=== PATIENT | male | born 1950 | race Caucasian/White ===

== ENCOUNTER 2018-10-06 20:21 | Emergency (ER) | payer MEDICARE, OTHER ==
[2018-10-06] MEDS ORDERED: Sodium Chloride 0.9% 1,000 ML IV ONE (20:28)
[2018-10-06] MEDS ORDERED: Sodium Chloride 0.9% 10 ML Syringe FLUSH PRN (20:28)
[2018-10-06] MEDS ORDERED: Sodium Chloride 0.9% 2.5 ML Syringe FLUSH PRN (20:28)
--- NOTE | 2018-10-06 20:31 | EDM.PDOC ---
ED HPI GENERAL MEDICAL PROBLEM - General Chief Complaint: Chest Pain Stated Complaint: PT DIZZY Time Seen by Provider: 10/06/18 20:30 Source of Information: Reports: Patient History Limitations: Reports: No Limitations - History of Present Illness INITIAL COMMENTS - FREE TEXT/NARRATIVE: HISTORY AND PHYSICAL: History of present illness: Patient is a 67-year-old male presents to the ED via EMS for lightheadedness and generalized weakness. He states he started feeling lightheaded and weak around 4pm this afternoon. He denies chest pain, shortness of breath, nausea, vomiting, headache, abdominal pain, diarrhea. He states he has a history of hypokalemia and hypmagnesemia and had calf cramping this afternoon. Past medical history significant for T2DM, hypertension, high cholesterol. Review of systems: As per history of present illness and below otherwise all systems reviewed and negative. Past medical history: As per history of present illness and as reviewed below otherwise noncontributory. Surgical history: As per history of present illness and as reviewed below otherwise noncontributory. Social history: No reported history of drug or alcohol abuse. Family history: As per history of present illness and as reviewed below otherwise noncontributory. Physical exam: General: Patient sitting comfortably in no acute distress and nontoxic appearing HEENT: Atraumatic, normocephalic, pupils reactive, negative for conjunctival pallor or scleral icterus, mucous membranes moist, throat clear, neck supple, nontender, trachea midline. No meningeal signs. Lungs: Clear to auscultation, breath sounds equal bilaterally, chest nontender. Heart: S1S2, regular, negative for clicks, rubs, or overt murmur. Abdomen: Soft, nondistended, nontender. Negative for masses or hepatosplenomegaly. Negative for costovertebral tenderness. No rigidity, rebound , guarding. Pelvis: Stable nontender. Genitourinary: Deferred. Rectal: Deferred. Extremities: Atraumatic, negative for cords or calf pain. Neurovascular unremarkable. Neuro: Awake, alert, oriented. Cranial nerves II through XII unremarkable. Cerebellum unremarkable. Motor and sensory unremarkable throughout. Exam nonfocal. Notes: Diagnostics: CBC, CMP, troponin, EKG, CXR, UA Therapeutics: 1L NS IV Prescriptions: Impression: Generalized weakness Plan: Follow up with primary care provider Return to ED as needed as discussed Definitive disposition and diagnosis as appropriate pending reevaluation and review of above. no pain Pain Score (Numeric/FACES): 0 - Related Data Allergies Allergy/AdvReac Type Severity Reaction Status Date / Time No Known Allergies Allergy Verified 10/06/18 20:30 Home Meds: Home Meds Aspirin 81 mg PO DAILY 10/06/18 [History] Baclofen 10 mg PO TID 10/06/18 [History] Carvedilol 25 mg PO ASDIRECTED 10/06/18 [History] Cholecalciferol (Vitamin D3) [D-2000] 2,000 unit PO ASDIRECTED 10/06/18 [History ] Cholecalciferol (Vitamin D3) [Vitamin D3] 1,000 unit PO ASDIRECTED 10/06/18 [ History] Cyanocobalamin (Vitamin B-12) [B-12] 1,000 mcg PO ASDIRECTED 10/06/18 [History] Cyclobenzaprine HCl 10 mg PO TID 10/06/18 [History] FLUoxetine HCl [Fluoxetine HCl] 20 mg PO ASDIRECTED 10/06/18 [History] Isosorbide Mononitrate [Imdur] 30 mg PO DAILY 10/06/18 [History] Lisinopril 10 mg PO DAILY 10/06/18 [History] Magnesium Oxide 420 mg PO ASDIRECTED 10/06/18 [History] Omeprazole 20 mg PO ONETIME 10/06/18 [History] amLODIPine Besylate [Amlodipine Besylate] 10 mg PO ASDIRECTED 10/06/18 [History] atorvaSTATin Calcium [Atorvastatin Calcium] 40 mg PO ASDIRECTED 10/06/18 [ History] atorvaSTATin Calcium [Atorvastatin Calcium] 80 mg PO ASDIRECTED 10/06/18 [ History] traZODone HCl [Trazodone HCl] 150 mg PO ASDIRECTED 10/06/18 [History] ED ROS GENERAL - Review of Systems Review Of Systems: ROS reveals no pertinent complaints other than HPI. ED EXAM, GENERAL - Physical Exam Exam: See Below (see dictation) Course - Vital Signs Last Recorded V/S: Last Vital Signs Temp 96.8 F 10/06/18 22:05 Pulse 81 10/06/18 22:05 Resp 18 10/06/18 22:05 BP 170/80 H 10/06/18 22:05 Pulse Ox 96 10/06/18 22:05 - Orders/Labs/Meds Orders: Active Orders 24 hr Category Date Time Status Cardiac Monitoring [RC] . DIRECTED Care 10/06/18 20:28 Active EKG Documentation Completion [RC] STAT Care 10/06/18 20:28 Active Sodium Chloride 0.9% [Saline Flush] Med 10/06/18 20:28 Active 10 ml FLUSH ASDIRECTED PRN Sodium Chloride 0.9% [Saline Flush] Med 10/06/18 20:28 Active 2.5 ml FLUSH ASDIRECTED PRN Saline Lock Insert [OM.PC] Stat Oth 10/06/18 20:28 Ordered Medication Orders Sodium Chloride (Saline Flush) 10 ml FLUSH ASDIRECTED PRN PRN Reason: Keep Vein Open Sodium Chloride (Saline Flush) 2.5 ml FLUSH ASDIRECTED PRN PRN Reason: Keep Vein Open Labs: Laboratory Tests 10/06/18 10/06/18 10/06/18 Range/Units 20:42 20:42 20:42 WBC 11.38 H (4.0-11.0) K/uL RBC 5.42 (4.50-5.90) M/uL Hgb 15.9 (13.0-17.0) g/dL Hct 44.4 (38.0-50.0) % MCV 81.9 (80.0-98.0) fL MCH 29.3 (27.0-32.0) pg MCHC 35.8 (31.0-37.0) g/dL RDW Std Deviation 40.6 (28.0-62.0) fl RDW Coeff of Davi 14 (11.0-15.0) % Plt Count 140 L (150-400) K/uL MPV 9.40 (7.40-12.00) fL Neut % (Auto) 74.5 (48.0-80.0) % Lymph % (Auto) 14.6 L (16.0-40.0) % Lamb % (Auto) 8.6 (0.0-15.0) % Eos % (Auto) 2.2 (0.0-7.0) % Baso % (Auto) 0.1 (0.0-1.5) % Neut # (Auto) 8.5 H (1.4-5.7) K/uL Lymph # (Auto) 1.7 (0.6-2.4) K/uL Lamb # (Auto) 1.0 H (0.0-0.8) K/uL Eos # (Auto) 0.3 (0.0-0.7) K/uL Baso # (Auto) 0.0 (0.0-0.1) K/uL Nucleated RBC % 0.0 /100WBC Nucleated RBCs # 0 K/uL INR 1.05 Sodium 138 (136-148) mmol/L Potassium 3.4 L (3.5-5.1) mmol/L Chloride 106 (98-107) mmol/L Carbon Dioxide 16.1 L (21.0-32.0) mmol/L BUN 14 (7.0-18.0) mg/dL Creatinine 1.2 (0.8-1.3) mg/dL Est Cr Clr Drug Dosing 59.99 mL/min Estimated GFR (MDRD) > 60.0 ml/min Glucose 267 H (74-106) mg/dL POC Glucose (60-110) mg/dL Calcium 9.5 (8.5-10.1) mg/dL Total Bilirubin 1.3 H (0.2-1.0) mg/dL AST 23 (15-37) IU/L ALT 44 (14-63) IU/L Alkaline Phosphatase 120 H (46-116) U/L Troponin I < 0.050 (0.000-0.056) ng/mL Total Protein 6.9 (6.4-8.2) g/dL Albumin 3.4 (3.4-5.0) g/dL Globulin 3.5 (2.6-4.0) g/dL Albumin/Globulin Ratio 1.0 (0.9-1.6) Urine Color Urine Appearance Urine pH (5.0-8.0) Ur Specific [place] (1.001-1.035) Urine Protein (NEGATIVE) mg/dL Urine Glucose (UA) (NEGATIVE) mg/dL Urine Ketones (NEGATIVE) mg/dL Urine Occult Blood (NEGATIVE) Urine Nitrite (NEGATIVE) Urine Bilirubin (NEGATIVE) Urine Ictotest Urine Urobilinogen (<2.0) EU/dL Ur Leukocyte Esterase (NEGATIVE) Urine RBC (0-2/HPF) Urine WBC (0-5/HPF) Ur Epithelial Cells (NONE-FEW) Urine Bacteria (NEGATIVE) Urine Mucus (NONE-MOD) 10/06/18 10/06/18 Range/Units 21:55 22:03 WBC (4.0-11.0) K/uL RBC (4.50-5.90) M/uL Hgb (13.0-17.0) g/dL Hct (38.0-50.0) % MCV (80.0-98.0) fL MCH (27.0-32.0) pg MCHC (31.0-37.0) g/dL RDW Std Deviation (28.0-62.0) fl RDW Coeff of Davi (11.0-15.0) % Plt Count (150-400) K/uL MPV (7.40-12.00) fL Neut % (Auto) (48.0-80.0) % Lymph % (Auto) (16.0-40.0) % Lamb % (Auto) (0.0-15.0) % Eos % (Auto) (0.0-7.0) % Baso % (Auto) (0.0-1.5) % Neut # (Auto) (1.4-5.7) K/uL Lymph # (Auto) (0.6-2.4) K/uL Lamb # (Auto) (0.0-0.8) K/uL Eos # (Auto) (0.0-0.7) K/uL Baso # (Auto) (0.0-0.1) K/uL Nucleated RBC % /100WBC Nucleated RBCs # K/uL INR Sodium (136-148) mmol/L Potassium (3.5-5.1) mmol/L Chloride (98-107) mmol/L Carbon Dioxide (21.0-32.0) mmol/L BUN (7.0-18.0) mg/dL Creatinine (0.8-1.3) mg/dL Est Cr Clr Drug Dosing mL/min Estimated GFR (MDRD) ml/min Glucose (74-106) mg/dL POC Glucose 207 H (60-110) mg/dL Calcium (8.5-10.1) mg/dL Total Bilirubin (0.2-1.0) mg/dL AST (15-37) IU/L ALT (14-63) IU/L Alkaline Phosphatase (46-116) U/L Troponin I (0.000-0.056) ng/mL Total Protein (6.4-8.2) g/dL Albumin (3.4-5.0) g/dL Globulin (2.6-4.0) g/dL Albumin/Globulin Ratio (0.9-1.6) Urine Color DARK YELLOW Urine Appearance SLT CLOUDY Urine pH 6.0 (5.0-8.0) Ur Specific [place] 1.025 (1.001-1.035) Urine Protein 30 H (NEGATIVE) mg/dL Urine Glucose (UA) NEGATIVE (NEGATIVE) mg/dL Urine Ketones NEGATIVE (NEGATIVE) mg/dL Urine Occult Blood NEGATIVE (NEGATIVE) Urine Nitrite NEGATIVE (NEGATIVE) Urine Bilirubin MODERATE H (NEGATIVE) Urine Ictotest NEGATIVE Urine Urobilinogen 0.2 (<2.0) EU/dL Ur Leukocyte Esterase NEGATIVE (NEGATIVE) Urine RBC 0-2 (0-2/HPF) Urine WBC 2-4 (0-5/HPF) Ur Epithelial Cells FEW (NONE-FEW) Urine Bacteria FEW (NEGATIVE) Urine Mucus HEAVY (NONE-MOD) Meds: Medications Generic Name Dose Route Start Last Admin Trade Name Freq PRN Reason Stop Dose Admin Sodium Chloride 10 ml 10/06/18 20:28 Saline Flush FLUSH ASDIRECTED PRN Keep Vein Open Sodium Chloride 2.5 ml 10/06/18 20:28 Saline Flush FLUSH ASDIRECTED PRN Keep Vein Open Discontinued Medications Generic Name Dose Route Start Last Admin Trade Name Freq PRN Reason Stop Dose Admin Sodium Chloride 1,000 mls @ 999 mls/hr 10/06/18 20:28 10/06/18 20:43 Normal Saline IV 10/06/18 21:28 999 mls/hr BOLUS ONE Administration Departure - Departure Time of Disposition: 22:28 Disposition: Home, Self-Care 01 Condition: Good Clinical Impression: Generalized weakness Referrals: PCP,None [Primary Care Provider] - Forms: ED Department Discharge Additional Instructions: The following information is given to patients seen in the emergency department who are being discharged to home. This information is to outline your options for follow-up care. We provide all patients seen in our emergency department with a follow-up referral. The need for follow-up, as well as the timing and circumstances, are variable depending upon the specifics of your emergency department visit. If you don't have a primary care physician on staff, we will provide you with a referral. We always advise you to contact your personal physician following an emergency department visit to inform them of the circumstance of the visit and for follow-up with them and/or the need for any referrals to a consulting specialist. The emergency department will also refer you to a specialist when appropriate. This referral assures that you have the opportunity for follow-up care with a specialist. All of these measure are taken in an effort to provide you with optimal care, which includes your follow-up. Under all circumstances we always encourage you to contact your private physician who remains a resource for coordinating your care. When calling for follow-up care, please make the office aware that this follow-up is from your recent emergency room visit. If for any reason you are refused follow-up, please contact the [facility] Emergency Department at and asked to speak to the emergency department charge nurse. [facility] [address] [place] [address] [place] [address] Follow up with primary care provider Return to ED as needed as discussed - My Orders Last 24 Hours: My Active Orders 10/06/18 20:28 Cardiac Monitoring [RC] . DIRECTED EKG Documentation Completion [RC] STAT Sodium Chloride 0.9% [Saline Flush] 10 ml FLUSH ASDIRECTED PRN Sodium Chloride 0.9% [Saline Flush] 2.5 ml FLUSH ASDIRECTED PRN Saline Lock Insert [OM.PC] Stat - Assessment/Plan Last 24 Hours: My Active Orders 10/06/18 20:28 Cardiac Monitoring [RC] . DIRECTED EKG Documentation Completion [RC] STAT Sodium Chloride 0.9% [Saline Flush] 10 ml FLUSH ASDIRECTED PRN Sodium Chloride 0.9% [Saline Flush] 2.5 ml FLUSH ASDIRECTED PRN Saline Lock Insert [OM.PC] Stat
--- NOTE | 2018-10-06 21:10 | CR ---
INDICATION: Chest pain, weakness TECHNIQUE: Chest radiograph 1 view COMPARISON: None FINDINGS: Mediastinum: The mediastinum is normal in appearance. The heart silhouette is normal in size and morphology. Lung: Both lungs are unremarkable in appearance. No sign of pleural effusion seen. No pneumothorax is identified. IMPRESSION: 1. No acute cardiopulmonary disease is seen. Dictated by: Chun Wren MD @ 10/06/2018 21:07:49 (Electronically Signed)
[2018-10-06 21:42] LABS: CHLORIDE,CL 106 mmol/L (98-107); SODIUM,NA 138 mmol/L (136-148)
== END 2018-10-06 22:45 | disposition home or self-care (01) ==
LOC: MW.ED 20:21
DX: R53.1 Weakness (principal); Z79.82 Long term (current) use of aspirin
CPT/HCPCS: 36415; 71045; 80053; 81001; 82962; 84484; 85025; 85610; 96360; 99285; J7040; 99283

== ENCOUNTER 2019-04-15 10:00 | Emergency (ER) | payer OTHER ==
[2019-04-15 11:06] LABS: CARBON DIOXIDE,CO2 22.5 mmol/L (21.0-32.0)
[2019-04-15] MEDS ORDERED: Potassium Chloride 20 MEQ Tab.ER PO ONE (11:21)
--- NOTE | 2019-04-15 13:09 | EDM.PDOC ---
ED HPI GENERAL MEDICAL PROBLEM - General Chief Complaint: General Stated Complaint: WEAKNESS Time Seen by Provider: 04/15/19 10:01 - History of Present Illness INITIAL COMMENTS - FREE TEXT/NARRATIVE: HPI 68-year-old male with history of HTN and low back pain presents for evaluation of a poorly described symptom constellation notable for intermittent lower extremity weakness when attempting to ambulate that is been present since yesterday evening. Patient reports that he is had recurrent/new onset low back pain several days prior. He was seen at the [facility] yesterday and reportedly diagnosed with left-sided ureterolithiasis that is the cause of his low back pain. Patient denies difficulty urinating, urinary incontinence, decreased perineal sensation, fecal incontinence, or difficulty stooling. Patient notes normal lower extremity sensation and waxing waning lower extremity strength. Triage note: PT to the ED [facility] having had weakness in his legs last night and falling, as well as being very SOB with walking short distances. PT upon standing to move to bed from EMS stretcher has shaking legs and a staggered appearing gait for the short distance. PT reports that he uses a walker to ambulate at home. Medications: atorvastatin, carvedilol, lisinopril, Imdur, B12, D3, fluoxetine, cyclobenzaprine, aspirin, amlodipine, omeprazole, baclofen. M/S/F/SocHx notable for: please see HPI; remainder reviewed with patient and in chart. ROS: Negative constitutional, eye, cardiovascular, pulmonary, GI, , MSK, skin , neurologic, psychiatric, endocrine unless noted in the HPI. Exam HR 81, RR 18, BP 126/103, T 35.9C, SaO2 98% on room air. Gen: Pleasant, non-toxic appearing, resting comfortably. HEENT: NC, AT, PEERL, EOMI. Resp: Clear to auscultation bilaterally, normal work of breathing, no accessory muscle usage. Card: Regular rate and rhythm with no murmurs, rubs, or gallops, extremities warm and well perfused. GI: Non-tender to palpation throughout all quadrants, no focal tenderness at McBurney's point, negative Xiao's sign, non-distended, no rebound or guarding. : No suprapubic tenderness to palpation. MSK: Gen - No visible deformities, strength and tone without visually appreciable deficit. BLE - 5/5 dorsiflexion and plantarflexion bilaterally, sensation grossly intact to touch on both feet. 2+ DP pulses bilaterally. Both feet warm and well perfused. 0/2 patellar reflexes bilaterally, 0/2 ankle reflexes bilaterally. Spine no lower thoracic or lumbar spinal tenderness palpation or palpable abnormalities. Gait - mildly antalgic, shuffling, slightly broad-based, when attempting to stand unassisted on toes patient has tremors of both legs. Assisted, the patient is able to stand with full strength on his toes. Skin: Normal color with no visible lesions. Neuro: alert and oriented 3, no facial asymmetry, vision and hearing WNL. Psych: Mood and affect appropriate. Labs / Imaging: WBC 7.29, HB 15.4, ESR 13, lactic acid 1.8, sodium 140, potassium 3.0, magnesium 1.8, CK 125, CRP 2.00, TSH 0.93. UA - negative nitrite, negative leukocyte esterase, no bacteria, no RBCs, negative occult blood. MDM Previous chart, nursing note, labs, imaging, and vitals reviewed. A: 68-year-old male with history of HTN and low back pain presents for evaluation of a poorly described symptom constellation notable for intermittent lower extremity weakness when attempting to ambulate that is been present since yesterday evening. DDx: electrolyte abnormalities, myositis, spinal pathology (fracture, lumbar radiculopathy, cauda equina), Guillain-Caldwell syndrome. Evaluation: patient with hypokalemia, upon further review patient notes that he has been noncompliant with his potassium supplementation. PO supplementation given. Repeat evaluation with patient noting return to baseline strength, patient notes he has had prior episodes of muscle weakness/spasming with hypokalemia. Patient discharged with Rx for potassium supplementation. CK WNL, doubt myositis. No clear evidence of clinically significant spinal pathology given the negative straight leg raise bilaterally, normal session your normal lower extremity strength, post void residual of 21 mL, and normal ESR, CRP, and WBC, furthermore, no point tenderness and unremarkable ROS and history. 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 While patient has no discernible lower extremity reflexes his age, diabetes, and alternate diagnosis are without suggestion of this etiology. Recommend follow-up on Wednesday for repeat evaluation. Impression: weakness, diabetes, hypokalemia. - Related Data Allergies Allergy/AdvReac Type Severity Reaction Status Date / Time methocarbamol [From Robaxin] Allergy Agitation Verified 04/15/19 10:05 Home Meds: Home Meds Aspirin 81 mg PO DAILY 10/06/18 [History] Baclofen 20 mg PO 10/06/18 [History] Cholecalciferol (Vitamin D3) [D-2000] 2,000 unit PO ASDIRECTED 10/06/18 [History ] Cholecalciferol (Vitamin D3) [Vitamin D3] 1,000 unit PO ASDIRECTED 10/06/18 [ History] Cyanocobalamin (Vitamin B-12) [B-12] 1,000 mcg PO ASDIRECTED 10/06/18 [History] Cyclobenzaprine HCl 10 mg PO TID 10/06/18 [History] FLUoxetine HCl [Fluoxetine HCl] 20 mg PO ASDIRECTED 10/06/18 [History] Isosorbide Mononitrate [Imdur] 30 mg PO DAILY 10/06/18 [History] Lisinopril 10 mg PO DAILY 10/06/18 [History] Magnesium Oxide 420 mg PO ASDIRECTED 10/06/18 [History] Omeprazole 20 mg PO ONETIME 10/06/18 [History] amLODIPine Besylate [Amlodipine Besylate] 10 mg PO ASDIRECTED 10/06/18 [History] atorvaSTATin Calcium [Atorvastatin Calcium] 40 mg PO ASDIRECTED 10/06/18 [ History] atorvaSTATin Calcium [Atorvastatin Calcium] 80 mg PO ASDIRECTED 10/06/18 [ History] carvediloL [Carvedilol] 25 mg PO ASDIRECTED 10/06/18 [History] Potassium Chloride [Klor-Con] 40 meq PO DAILY #8 packet 04/15/19 [Rx] Past Medical History HEENT History: Reports: None Cardiovascular History: Reports: High Cholesterol, Hypertension Respiratory History: Reports: None Gastrointestinal History: Reports: GERD Genitourinary History: Reports: Renal Calculus Musculoskeletal History: Reports: None Neurological History: Reports: None Psychiatric History: Reports: None Endocrine/Metabolic History: Reports: Diabetes, Type II Hematologic History: Reports: None Oncologic (Cancer) History: Reports: None Dermatologic History: Reports: None - Infectious Disease History Infectious Disease History: Reports: Hepatitis A - Past Surgical History GI Surgical History: Reports: Appendectomy, Cholecystectomy, Hernia Repair/Other Male Surgical History: Reports: Renal Calculus Other Musculoskeletal Surgeries/Procedures:: Back surgery with fusions Social & Family History - Family History Family Medical History: Noncontributory - Tobacco Use Smoking Status *Q: Never Smoker - Recreational Drug Use Recreational Drug Use: No ED ROS GENERAL - Review of Systems Review Of Systems: See Below ED EXAM, GENERAL - Physical Exam Exam: See Below Course - Vital Signs Last Recorded V/S: Last Vital Signs Temp 35.9 C L 04/15/19 10:05 Pulse 77 04/15/19 12:52 Resp 18 04/15/19 11:52 BP 103/53 L 04/15/19 12:52 Pulse Ox 93 L 04/15/19 12:52 - Orders/Labs/Meds Orders: Active Orders 24 hr Category Date Time Status Post Void Residual [OM.PC] Stat Oth 04/15/19 10:34 Ordered Labs: Laboratory Tests 04/15/19 04/15/19 04/15/19 Range/Units 10:04 10:04 10:04 WBC 7.29 (4.0-11.0) K/uL RBC 5.32 (4.50-5.90) M/uL Hgb 15.4 (13.0-17.0) g/dL Hct 44.5 (38.0-50.0) % MCV 83.6 (80.0-98.0) fL MCH 28.9 (27.0-32.0) pg MCHC 34.6 (31.0-37.0) g/dL RDW Std Deviation 39.6 (28.0-62.0) fl RDW Coeff of Davi 13 (11.0-15.0) % Plt Count 136 L (150-400) K/uL MPV 9.40 (7.40-12.00) fL Neut % (Auto) 68.4 (48.0-80.0) % Lymph % (Auto) 17.4 (16.0-40.0) % [place] % (Auto) 13.4 (0.0-15.0) % Eos % (Auto) 0.5 (0.0-7.0) % Baso % (Auto) 0.3 (0.0-1.5) % Neut # (Auto) 5.0 (1.4-5.7) K/uL Lymph # (Auto) 1.3 (0.6-2.4) K/uL [place] # (Auto) 1.0 H (0.0-0.8) K/uL Eos # (Auto) 0.0 (0.0-0.7) K/uL Baso # (Auto) 0.0 (0.0-0.1) K/uL Nucleated RBC % 0.0 /100WBC Nucleated RBCs # 0 K/uL ESR 13 (0-19) mm/hr Lactate (0.20-2.00) mmol/L Sodium 140 (136-148) mmol/L Potassium 3.0 L (3.5-5.1) mmol/L Chloride 102 (98-107) mmol/L Carbon Dioxide 22.5 (21.0-32.0) mmol/L BUN 20 H (7.0-18.0) mg/dL Creatinine 2.0 H (0.8-1.3) mg/dL Est Cr Clr Drug Dosing 35.49 mL/min Estimated GFR (MDRD) 33.2 ml/min Glucose 231 H (74-106) mg/dL Calcium 8.8 (8.5-10.1) mg/dL Magnesium 1.8 (1.8-2.4) mg/dL Total Bilirubin 0.8 (0.2-1.0) mg/dL AST 28 (15-37) IU/L ALT 47 (14-63) IU/L Alkaline Phosphatase 103 (46-116) U/L Creatine Kinase 125 (26-308) U/L C-Reactive Protein 2.00 H (0.00-0.90) mg/dL Total Protein 7.5 (6.4-8.2) g/dL Albumin 3.7 (3.4-5.0) g/dL Globulin 3.8 (2.6-4.0) g/dL Albumin/Globulin Ratio 1.0 (0.9-1.6) TSH 3rd Generation 0.93 (0.36-3.74) uIU/mL Urine Color Urine Appearance Urine pH (5.0-8.0) Ur Specific Fife (1.001-1.035) Urine Protein (NEGATIVE) mg/dL Urine Glucose (UA) (NEGATIVE) mg/dL Urine Ketones (NEGATIVE) mg/dL Urine Occult Blood (NEGATIVE) Urine Nitrite (NEGATIVE) Urine Bilirubin (NEGATIVE) Urine Urobilinogen (<2.0) EU/dL Ur Leukocyte Esterase (NEGATIVE) Urine RBC (0-2/HPF) Urine WBC (0-5/HPF) Ur Epithelial Cells (NONE-FEW) Urine Bacteria (NEGATIVE) 04/15/19 04/15/19 Range/Units 10:42 12:20 WBC (4.0-11.0) K/uL RBC (4.50-5.90) M/uL Hgb (13.0-17.0) g/dL Hct (38.0-50.0) % MCV (80.0-98.0) fL MCH (27.0-32.0) pg MCHC (31.0-37.0) g/dL RDW Std Deviation (28.0-62.0) fl RDW Coeff of Davi (11.0-15.0) % Plt Count (150-400) K/uL MPV (7.40-12.00) fL Neut % (Auto) (48.0-80.0) % Lymph % (Auto) (16.0-40.0) % [place] % (Auto) (0.0-15.0) % Eos % (Auto) (0.0-7.0) % Baso % (Auto) (0.0-1.5) % Neut # (Auto) (1.4-5.7) K/uL Lymph # (Auto) (0.6-2.4) K/uL [place] # (Auto) (0.0-0.8) K/uL Eos # (Auto) (0.0-0.7) K/uL Baso # (Auto) (0.0-0.1) K/uL Nucleated RBC % /100WBC Nucleated RBCs # K/uL ESR (0-19) mm/hr Lactate 1.8 (0.20-2.00) mmol/L Sodium (136-148) mmol/L Potassium (3.5-5.1) mmol/L Chloride (98-107) mmol/L Carbon Dioxide (21.0-32.0) mmol/L BUN (7.0-18.0) mg/dL Creatinine (0.8-1.3) mg/dL Est Cr Clr Drug Dosing mL/min Estimated GFR (MDRD) ml/min Glucose (74-106) mg/dL Calcium (8.5-10.1) mg/dL Magnesium (1.8-2.4) mg/dL Total Bilirubin (0.2-1.0) mg/dL AST (15-37) IU/L ALT (14-63) IU/L Alkaline Phosphatase (46-116) U/L Creatine Kinase (26-308) U/L C-Reactive Protein (0.00-0.90) mg/dL Total Protein (6.4-8.2) g/dL Albumin (3.4-5.0) g/dL Globulin (2.6-4.0) g/dL Albumin/Globulin Ratio (0.9-1.6) TSH 3rd Generation (0.36-3.74) uIU/mL Urine Color YELLOW Urine Appearance CLEAR Urine pH 5.5 (5.0-8.0) Ur Specific F[place] >= 1.030 (1.001-1.035) Urine Protein NEGATIVE (NEGATIVE) mg/dL Urine Glucose (UA) NEGATIVE (NEGATIVE) mg/dL Urine Ketones NEGATIVE (NEGATIVE) mg/dL Urine Occult Blood NEGATIVE (NEGATIVE) Urine Nitrite NEGATIVE (NEGATIVE) Urine Bilirubin NEGATIVE (NEGATIVE) Urine Urobilinogen 0.2 (<2.0) EU/dL Ur Leukocyte Esterase NEGATIVE (NEGATIVE) Urine RBC NONE SEEN (0-2/HPF) Urine WBC NONE SEEN (0-5/HPF) Ur Epithelial Cells RARE (NONE-FEW) Urine Bacteria NOT SEEN (NEGATIVE) Meds: Medications Discontinued Medications Generic Name Dose Route Start Last Admin Trade Name Freq PRN Reason Stop Dose Admin Potassium Chloride 40 meq 04/15/19 11:21 04/15/19 11:51 Klor-Con M20 PO 04/15/19 11:22 40 meq ONETIME ONE Administration Departure - Departure Time of Disposition: 13:06 Disposition: Home, Self-Care 01 Clinical Impression: Hypokalemia, Diabetes, Muscle weakness - Discharge Information Prescriptions: Potassium Chloride [Klor-Con] 40 meq PO DAILY #8 packet Referrals: PCP,None [Primary Care Provider] - Additional Instructions: You were in seen in the [facility] Emergency Department for evaluation of muscle weakness, you were found to have low potassium or hypokalemia. You have been prescribed potassium supplements. You were also noted to have diabetes. Please discuss this with your primary care physician on Wednesday when you follow-up. Should you have new or worsening symptoms please return immediately to the emergency department. Please read and follow all of the instructions below. Please follow up with your primary care physician on Wednesday for repeat check of your potassium. When calling for follow-up care, please make the office aware that this follow-up is from your recent emergency room visit. If for any reason you are refused follow-up, please contact the [facility] Emergency Department at and asked to speak to the emergency department charge nurse. Your care today was limited to identifying and treating emergent medical problems only. Many people have subtle differences in their test results that require follow up with their outpatient physician(s) to correctly determine if this represents a normal variation or concerning abnormality with respect to your specific health. The care given to you today was limited to identifying and treating emergent medical problems - you need to request a copy of all of your medical records from today's visit and follow up with your outpatient physician(s) to review both today's visit and your overall health. If you have any new symptoms or if you are at all concerned about your health please return immediately to the emergency department. Prescriptions: If you are uninsured or have financial difficulties with filling your prescription(s), you may consider using a free pharmacy discount service such as [employer] ([employer]) or [employer] ([employer]). These services allow you to search for a medication on your phone (or computer) and obtain a coupon that usually has a significant discount from the list neves at a pharmacy. Your physician as well as [facility] does not have a financial relationship with either of these services. You may also wish to speak with your physician to determine if lower cost prescriptions are possible. Obtaining primary care: 1. [facility] provides pediatrics (children), family medicine (children, adults, and some obstetrical care), and internal medicine (adults). Further specialty care is also available. Same day appointments are available. They may be contacted at [phone] and are open Wednesday through Wednesday 8 AM to 5 PM. The [facility] are located at [address], [place], [place] [address]. 2. [facility] offers family medicine, internal medicine, womens health, and further specialty care. [facility] may be contacted at [phone]. [facility] is located at [address] [place], [address]. 3. If you have health insurance, please also contact your insurer for a list of accepting providers under your policy, you may contact these providers for further health care. Occupational health: Work related injuries may consider following up with [facility], . Occupational health services are located at [address], [place] [address] and are open Wednesday through Wednesday from 7: 30 am to 5:00 pm. Obstetrical and Gynecological Care: [facility], , Wednesday through Wednesday 8 AM to [address] [place] [address]. Eyecare: If you have an eye injury you should follow up with your community manager or with [facility], at [phone] or [phone] , they are located at [address] [place] [address]. Dental Care Mckay Torres DDS. [address] [facility], [place], [place]. Ph. [phone] Holland Torres DDS MS. [address] [facility] [address], [place], [place]. Ph. Droian Barber DDS. [address] [place], [place]. Ph. [phone] Arnie Kellogg DDS. [address] [facility] [address] [place], [place]. Ph. [phone] [facility]. [address] [place], [place]. Ph. Flora Knott DDS. [address] [facility]. Ph. [phone] [facility]. [address] [place], [place]. Ph. [phone] [facility]. [address], [place], [place]. Ph. [phone] [facility] [address] [place] [address]. Ph. [phone] [facility]. [address] [place] [address] [address] [place], [place]. Ph. [facility]. [address], [place], [place]. Ph. Sepsis Event Note - Evaluation Sepsis Screening Result: No Definite Risk - Focused Exam Vital Signs: Vital Signs Temp Pulse Resp BP Pulse Ox 04/15/19 12:52 77 103/53 L 93 L 04/15/19 11:52 75 18 161/79 H 97 04/15/19 11:07 75 18 139/71 97 04/15/19 10:05 35.9 C L 81 18 126/103 H 98 Date Exam was Performed: 04/15/19 Time Exam was Performed: 13:06 - My Orders Last 24 Hours: My Active Orders 04/15/19 10:34 Post Void Residual [OM.PC] Stat - Assessment/Plan Last 24 Hours: My Active Orders 04/15/19 10:34 Post Void Residual [OM.PC] Stat
== END 2019-04-15 13:19 | disposition home or self-care (01) ==
LOC: MW.ED 10:00
DX: E87.6 Hypokalemia (principal); E11.9 Type 2 diabetes mellitus without complications; I10 Essential (primary) hypertension; E78.00 Pure hypercholesterolemia, unspecified; K21.9 Gastro-esophageal reflux disease without esophagitis; Z79.82 Long term (current) use of aspirin; Z79.899 Other long term (current) drug therapy; Z88.8 Allergy status to other drugs, medicaments and biological substances
CPT/HCPCS: 36415; 51798; 80053; 81001; 82550; 83605; 83735; 84443; 85025; 85652; 86140; 99283; A9270

== ENCOUNTER 2019-05-31 15:59 | Observation (INO) | payer OTHER ==
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
[2019-05-31 16:51] LABS: BLOOD UREA NITROGEN,BUN 19 mg/dL (7.0-18.0); CARBON DIOXIDE,CO2 22.3 mmol/L (21.0-32.0); CHLORIDE,CL 102 mmol/L (98-107); GLUCOSE RANDOM 272 mg/dL (74-106); POTASSIUM,K 3.8 mmol/L (3.5-5.1); SODIUM,NA 136 mmol/L (136-148)
--- NOTE | 2019-05-31 17:13 | CR ---
Chest: Portable view of the chest was obtained. Comparison: Prior chest x-ray of 10/06/18. Heart size and mediastinum are normal. Lungs are clear. Old healed right clavicle fracture is noted. Scattered endplate spurring noted within the spine. Impression: 1. Nothing acute is appreciated on portable chest x-ray. Diagnostic code #2 This report was dictated in MDT
--- NOTE | 2019-05-31 17:13 | CT ---
Head CT Technique: Multiple axial sections through the brain were obtained. Intravenous contrast was not utilized. Comparison: No prior intracranial imaging is available. Findings: Ventricles along with basal cisterns and sulci over the convexities appear within normal limits for the patient's age. Small lacunar infarct is noted adjacent to the head of the right caudate nucleus. Minimal diminished density is noted within the periventricular white matter compatible with small vessel ischemic demyelination change. Mild atherosclerotic calcification is seen within the vertebral vessels and within the carotid siphon. No acute intracranial abnormality is appreciated. Bone window settings were reviewed. No acute calvarial abnormality is appreciated. Slight mucosal thickening which is most likely chronic is seen within the inferior maxillary sinuses. Mastoid sinuses show nothing acute. Unfused posterior arch of C1 is noted which is a normal variant. Impression: 1. Sinus findings believed to be chronic. 2. Mild senescent change as noted above. 3. Nothing acute is appreciated on noncontrast CT study of the brain. Diagnostic code #2 This report was dictated in MDT
--- NOTE | 2019-05-31 17:25 | CT ---
CT cervical spine Technique: Multiple axial sections through the cervical spine were obtained. Study was obtained from above C1 inferiorly to the mid T4 level. Reconstructed sagittal and coronal images were obtained. Findings: Mild disc space narrowing of C5-6 with anterior osteophytes. Smaller osteophytes are noted C6-7. Calcifications are noted within the anterior annulus at C5-6 and C6-7. Bridging osteophytes are noted at T2-3 and T3-4. Mild osteophytes are noted anteriorly at C3-4. No abnormal subluxation is seen. Scattered degenerative apophyseal change is seen throughout the cervical spine and within the upper thoracic spine. Incomplete arch of C1 is seen which is a normal variant. No fracture is appreciated. Mild right-sided neural foraminal stenosis noted at C4-5. Mild right-sided neural foraminal stenosis noted at C3-4. No bony central canal stenosis is appreciated. Impression: 1. Degenerative change as noted above. 2. Nothing acute is appreciated on CT study of the cervical spine. Diagnostic code #2 This report was dictated in MDT
--- NOTE | 2019-05-31 17:25 | CT ---
CT lumbar spine Technique: Multiple axial sections were obtained CT lumbar spine Technique: Multiple axial sections were obtained from the mid T12 level inferiorly through the L5-S1 disc. Reconstructed sagittal and coronal images were reviewed. Comparison: No prior lumbar spine imaging is available. Findings: T12-L1: Posterior disc space narrowing is seen. Posterior disc is preserved. No central canal stenosis or neural foraminal stenosis is seen. L1-2: Posterior disc space narrowing is seen. No central canal stenosis or neural foraminal stenosis is seen. L2-3: Posterior disc space narrowing is seen. Minimal circumferential disc bulge is noted. Mild degenerative apophyseal change is noted. No central canal stenosis is seen. Neural foramina are patent where the nerve roots exit. L3-4: Slight circumferential disc bulge is noted. Moderate degenerative apophyseal change is seen. No central canal stenosis is seen. Neural foramina are patent where the nerve roots exit. L4-5: Slight posterior disc space narrowing noted with circumferential disc bulge. Artifact noted from transpedicle screws being seen within L5. No definite central canal stenosis or neural foraminal stenosis is seen. L5-S1: Artifact from intervertebral disc fixation and transpedicle screws. No further comment can be made. No discrete fracture is appreciated. No abnormal subluxation is seen. Diffuse atherosclerotic calcification is seen within the abdominal aorta and within the iliac vessels. Impression: 1. Degenerative change and previous surgery. 2. No definite acute abnormality is appreciated on CT study of the lumbar spine. Diagnostic code #2 This report was dictated in MDT
[2019-05-31] MEDS ORDERED: Morphine 4 MG/ML Syringe IVPUSH PRN (18:12)
[2019-05-31] MEDS: Ondansetron 4 MG/2 ML SDV IVPUSH ONE ×2 (18:46→18:47)
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
[2019-05-31] MEDS ORDERED: atorvaSTATin 40 MG Tab PO SCH (21:30)
[2019-05-31] MEDS ORDERED: traZODone 50 MG Tab PO SCH (21:30)
[2019-05-31] MEDS ORDERED: Baclofen 10 MG Tab PO SCH (22:00)
[2019-05-31] MEDS: Gabapentin 300 MG Cap PO SCH (22:18)
[2019-05-31] MEDS: Carvedilol 25 MG Tab PO SCH (22:18)
[2019-06-01 06:05] LABS: CARBON DIOXIDE,CO2 25.9 mmol/L (21.0-32.0); POTASSIUM,K 3.4 mmol/L (3.5-5.1)
[2019-06-01] MEDS ORDERED: Insulin Aspart 100 Units/ML 3 ML Pen SUBCUT SCH (07:00)
[2019-06-01] MEDS ORDERED: Insulin Glargine,Human Rec. Analog 100 Units/ML 3 ML Pen SUBCUT SCH (07:00)
[2019-06-01] MEDS ORDERED: FLUoxetine 20 MG Cap PO SCH (08:00)
[2019-06-01] MEDS: Gabapentin 300 MG Cap PO SCH (08:15)
[2019-06-01] MEDS: Carvedilol 25 MG Tab PO SCH (08:15)
[2019-06-01] MEDS ORDERED: Isosorbide Mononitrate 30 MG Tab.ER PO SCH (09:00)
[2019-06-01] MEDS ORDERED: Baclofen 10 MG Tab PO SCH (09:00)
[2019-06-01] MEDS ORDERED: Lisinopril 5 MG Tab PO SCH (09:00)
[2019-06-01] MEDS ORDERED: amLODIPine 5 MG Tab PO SCH (09:00)
--- NOTE | 2019-06-01 09:34 | PCM.SN.2 ---
- Free Text/Narrative Note: no complaints; no neurological finding; abd soft; home, fu w primary provider and me 1 -2 wks
[2019-06-01] MEDS ORDERED: Pneumococcal Polyvalent-23 Vaccine 0.5 ML SDV IM ONE (09:45)
[2019-06-02] MEDS ORDERED: Pneumococcal Polyvalent-23 Vaccine 0.5 ML SDV IM ONE (10:00)
== END 2019-06-01 10:25 | disposition home or self-care (01) ==
LOC: MW.ED 15:59 → MW.MS 18:41
PROVIDERS: ADMIT Surgery; ATTEND Surgery
DX: S06.0X9A Concussion with loss of consciousness of unspecified duration, initial encounter (principal); G89.29 Other chronic pain; M54.5 Low back pain; E78.00 Pure hypercholesterolemia, unspecified; I10 Essential (primary) hypertension; E11.9 Type 2 diabetes mellitus without complications; Z88.8 Allergy status to other drugs, medicaments and biological substances; Z79.899 Other long term (current) drug therapy; Z79.4 Long term (current) use of insulin; V57.5XXA Driver of pick-up truck or van injured in collision with fixed or stationary object in traffic accident, initial encounter; Y92.410 Unspecified street and highway as the place of occurrence of the external cause
CPT/HCPCS: 36415; 70450; 71045; 72125; 72131; 80053; 80307; 82962; 84484; 85025; 85610; 93005; 99285; A9270; G0378; J1815; 99283; J2405

== ENCOUNTER 2019-09-07 16:24 | Emergency (ER) | payer OTHER ==
[2019-09-07] MEDS ORDERED: Acetaminophen/oxyCODONE 325-5 MG Tab PO ONE (17:28)
[2019-09-07] MEDS ORDERED: Ibuprofen 400 MG Tab PO ONE (17:28)
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
[2019-09-07] MEDS ORDERED: Bacitracin Oint 1 GM U/D Packet TOP ONE (20:19)
--- NOTE | 2019-09-07 21:57 | CT ---
CT left hand Technique: Multiple axial sections through the left hand were obtained. Reconstructed coronal and sagittal images were obtained. Comparison: Prior left hand radiographic study performed earlier on the same day (3:11 PM). Findings: Degenerative change is noted within the DIP joints with joint space narrowing and osteophytes. Joint space narrowing is noted off the distal navicular bone. Cyst is noted within the trapezoid bone. Cyst is noted within the lunate bone. Cysts are noted within the distal first metacarpal as well as several small erosions which appeared to be old. No acute fracture or other bony abnormality is appreciated. Impression: 1. Degenerative change as noted above. 2. No acute fracture or dislocation is seen. Diagnostic code #2 Report dictated in [place] daylight time. [facility]
--- NOTE | 2019-09-08 10:38 | CT ---
EXAM DATE: 09/07/19 PATIENT'S AGE: 68 CT left wrist Technique: Multiple axial to the left wrist were obtained. Reconstructed: Sagittal images were obtained. Comparison: No prior wrist exams available. Scattered cysts noted within the carpal bones. Joint space narrowing noted off the distal navicular bone. No acute fracture, dislocation or other bony abnormality is appreciated. Impression: 1. Mild degenerative change. 2. Nothing acute seen on CT study of the left wrist. Diagnostic code #2 This report was dictated in MDT Report Signed by Proxy. GALO
== END 2019-09-07 20:40 | disposition home or self-care (01) ==
LOC: MW.ED 16:24
DX: S63.92XA Sprain of unspecified part of left wrist and hand, initial encounter (principal); E11.9 Type 2 diabetes mellitus without complications; I10 Essential (primary) hypertension; F41.9 Anxiety disorder, unspecified; F32.9 Major depressive disorder, single episode, unspecified; E66.9 Obesity, unspecified; E78.00 Pure hypercholesterolemia, unspecified; E78.5 Hyperlipidemia, unspecified; Z88.8 Allergy status to other drugs, medicaments and biological substances; Z79.899 Other long term (current) drug therapy; Z79.4 Long term (current) use of insulin; W19.XXXA Unspecified fall, initial encounter; Y92.481 Parking lot as the place of occurrence of the external cause
CPT/HCPCS: 73200; 99284; A9270; 99282

== ENCOUNTER 2019-09-29 12:26 | Observation (INO) | payer OTHER ==
[2019-09-29] MEDS ORDERED: Sodium Chloride 0.9% 2.5 ML Syringe FLUSH PRN ×2 (12:44→15:07)
[2019-09-29] MEDS ORDERED: Sodium Chloride 0.9% 1,000 ML IV ONE (12:44)
[2019-09-29] MEDS ORDERED: Sodium Chloride 0.9% 10 ML Syringe FLUSH PRN (12:44)
[2019-09-29 13:45] LABS: CARBON DIOXIDE,CO2 20.2 mmol/L (21.0-32.0); POTASSIUM,K 3.5 mmol/L (3.5-5.1)
[2019-09-29] MEDS ORDERED: Sodium Chloride 0.9% 1,000 ML IV SCH (14:00)
--- NOTE | 2019-09-29 14:21 | EDM.PDOC ---
ED HPI GENERAL MEDICAL PROBLEM - General Chief Complaint: General Stated Complaint: [facility] Time Seen by Provider: 09/29/19 12:28 - Related Data Allergies Allergy/AdvReac Type Severity Reaction Status Date / Time methocarbamol [From Robaxin] Allergy Agitation Verified 09/29/19 12:42 Home Meds: Home Meds FLUoxetine HCl [Fluoxetine HCl] 60 mg PO WITHBREAKFAST 10/06/18 [History] Isosorbide Mononitrate [Imdur] 30 mg PO DAILY 10/06/18 [History] Lisinopril 5 mg PO QAM 10/06/18 [History] amLODIPine Besylate [Amlodipine Besylate] 5 mg PO DAILY 10/06/18 [History] atorvaSTATin Calcium [Atorvastatin Calcium] 40 mg PO BEDTIME 10/06/18 [History] carvediloL [Carvedilol] 25 mg PO BID 10/06/18 [History] Baclofen 20 mg PO DAILY 05/31/19 [History] Gabapentin [Neurontin] 300 mg PO BID 05/31/19 [History] Insulin Aspart [NovoLOG] 12 unit SUBCUT .QAM AND QPM 05/31/19 [History] Insulin Glargine,Hum.Rec.Anlog [Lantus Solostar] 32 unit SQ .QAM AND QPM 05/31/19 [History] traZODone HCl [Trazodone HCl] 150 mg PO BEDTIME 05/31/19 [History] Past Medical History HEENT History: Reports: None Cardiovascular History: Reports: High Cholesterol, Hypertension, Other (See Below) Other Cardiovascular History: reports a "chip in my chest", states "no mri for me" Respiratory History: Reports: None Gastrointestinal History: Reports: GERD Genitourinary History: Reports: Renal Calculus Musculoskeletal History: Reports: Arthritis, Back Pain, Chronic, Other (See Below) Other Musculoskeletal History: lower back pain Neurological History: Reports: None Psychiatric History: Reports: Anxiety, Depression, PTSD Endocrine/Metabolic History: Reports: Diabetes, Type II, Obesity/BMI 30+ Hematologic History: Reports: None Oncologic (Cancer) History: Reports: None Dermatologic History: Reports: None - Infectious Disease History Infectious Disease History: Reports: None - Past Surgical History Head Surgeries/Procedures: Reports: None Cardiovascular Surgical History: Reports: None GI Surgical History: Reports: Appendectomy, Cholecystectomy, Hernia Repair/Other Male Surgical History: Reports: Renal Calculus Endocrine Surgical History: Reports: None Other Musculoskeletal Surgeries/Procedures:: Back surgery with fusions plate and screws Social & Family History - Family History Family Medical History: Noncontributory - Tobacco Use Smoking Status *Q: Never Smoker - Caffeine Use Caffeine Use: Reports: Coffee Other Caffeine Use: 20 oz coffee in morning - Recreational Drug Use Recreational Drug Use: No ED ROS GENERAL - Review of Systems Review Of Systems: See Below ED EXAM, GENERAL - Physical Exam Exam: See Below Course - Vital Signs Text/Narrative:: Patient have worsening renal insufficiency he is asymptomatic there is a normal potassium I discussed case with Dr. Pan at 2:20 PM he will accept the patient telemetry obs. Patient was given IV fluids in the ED. COVID pending Last Recorded V/S: Last Vital Signs Temp 35.8 C L 09/29/19 12:42 Pulse 66 09/29/19 13:45 Resp 16 09/29/19 13:15 BP 101/59 L 09/29/19 13:45 Pulse Ox 98 09/29/19 13:45 - Orders/Labs/Meds Orders: Active Orders 24 hr Category Date Time Status CORONAVIRUS COVID-19 RAPID [MOLEC] Stat Lab 09/29/19 13:57 Received Sodium Chloride 0.9% [Normal Saline] 1,000 ml Med 09/29/19 14:00 Active IV ASDIRECTED Sodium Chloride 0.9% [Saline Flush] Med 09/29/19 12:44 Active 10 ml FLUSH ASDIRECTED PRN Sodium Chloride 0.9% [Saline Flush] Med 09/29/19 12:44 Active 2.5 ml FLUSH ASDIRECTED PRN Saline Lock Insert [OM.PC] Stat Oth 09/29/19 12:44 Ordered Medication Orders Sodium Chloride (Normal Saline) 1,000 mls @ 125 mls/hr IV ASDIRECTED VILMA Sodium Chloride (Saline Flush) 10 ml FLUSH ASDIRECTED PRN PRN Reason: Keep Vein Open Sodium Chloride (Saline Flush) 2.5 ml FLUSH ASDIRECTED PRN PRN Reason: Keep Vein Open Labs: Laboratory Tests 09/29/19 09/29/19 Range/Units 13:05 13:05 WBC 9.43 (4.0-11.0) K/uL RBC 4.94 (4.50-5.90) M/uL Hgb 14.9 (13.0-17.0) g/dL Hct 41.5 (38.0-50.0) % MCV 84.0 (80.0-98.0) fL MCH 30.2 (27.0-32.0) pg MCHC 35.9 (31.0-37.0) g/dL RDW Std Deviation 40.2 (28.0-62.0) fl RDW Coeff of Davi 13 (11.0-15.0) % Plt Count 184 (150-400) K/uL MPV 9.20 (7.40-12.00) fL Neut % (Auto) 54.4 (48.0-80.0) % Lymph % (Auto) 32.4 (16.0-40.0) % [place] % (Auto) 9.8 (0.0-15.0) % Eos % (Auto) 3.2 (0.0-7.0) % Baso % (Auto) 0.2 (0.0-1.5) % Neut # (Auto) 5.1 (1.4-5.7) K/uL Lymph # (Auto) 3.1 H (0.6-2.4) K/uL [place] # (Auto) 0.9 H (0.0-0.8) K/uL Eos # (Auto) 0.3 (0.0-0.7) K/uL Baso # (Auto) 0.0 (0.0-0.1) K/uL Nucleated RBC % 0.0 /100WBC Nucleated RBCs # 0 K/uL Sodium 134 L (136-148) mmol/L Potassium 3.5 (3.5-5.1) mmol/L Chloride 100 (98-107) mmol/L Carbon Dioxide 20.2 L (21.0-32.0) mmol/L BUN 48 H (7.0-18.0) mg/dL Creatinine 2.9 H (0.8-1.3) mg/dL Est Cr Clr Drug Dosing 24.47 mL/min Estimated GFR (MDRD) 21.6 ml/min Glucose 196 H (74-106) mg/dL Calcium 8.9 (8.5-10.1) mg/dL Total Bilirubin 1.5 H (0.2-1.0) mg/dL AST 42 H (15-37) IU/L ALT 48 (14-63) IU/L Alkaline Phosphatase 99 (46-116) U/L Total Protein 7.8 (6.4-8.2) g/dL Albumin 4.1 (3.4-5.0) g/dL Globulin 3.7 (2.6-4.0) g/dL Albumin/Globulin Ratio 1.1 (0.9-1.6) Meds: Medications Generic Name Dose Route Start Last Admin Trade Name Freq PRN Reason Stop Dose Admin Sodium Chloride 1,000 mls @ 125 mls/hr 09/29/19 14:00 Normal Saline IV ASDIRECTED VILMA Sodium Chloride 10 ml 09/29/19 12:44 Saline Flush FLUSH ASDIRECTED PRN Keep Vein Open Sodium Chloride 2.5 ml 09/29/19 12:44 Saline Flush FLUSH ASDIRECTED PRN Keep Vein Open Discontinued Medications Generic Name Dose Route Start Last Admin Trade Name Freq PRN Reason Stop Dose Admin Sodium Chloride 1,000 mls @ 999 mls/hr 09/29/19 12:44 09/29/19 13:09 Normal Saline IV 09/29/19 13:44 999 mls/hr .Bolus ONE Administration Departure - Departure Time of Disposition: 14:21 Disposition: Refer to Observation Condition: Good Clinical Impression: Acute kidney injury - Discharge Information *PRESCRIPTION DRUG MONITORING PROGRAM REVIEWED*: Not Applicable *COPY OF PRESCRIPTION DRUG MONITORING REPORT IN PATIENT LILIA: Not Applicable Referrals: Eloy Hdz NP [Primary Care Provider] - Sepsis Event Note (ED) - Evaluation Sepsis Screening Result: No Definite Risk - Focused Exam Vital Signs: Vital Signs Temp Pulse Resp BP Pulse Ox 09/29/19 13:45 66 101/59 L 98 09/29/19 13:15 64 16 104/51 L 96 09/29/19 12:42 35.8 C L 83 16 108/58 L 98 - My Orders Last 24 Hours: My Active Orders 09/29/19 12:44 Sodium Chloride 0.9% [Saline Flush] 10 ml FLUSH ASDIRECTED PRN Sodium Chloride 0.9% [Saline Flush] 2.5 ml FLUSH ASDIRECTED PRN Saline Lock Insert [OM.PC] Stat 09/29/19 13:57 CORONAVIRUS COVID-19 RAPID [MOLEC] Stat 09/29/19 14:00 Sodium Chloride 0.9% [Normal Saline] 1,000 ml IV ASDIRECTED - Assessment/Plan Last 24 Hours: My Active Orders 09/29/19 12:44 Sodium Chloride 0.9% [Saline Flush] 10 ml FLUSH ASDIRECTED PRN Sodium Chloride 0.9% [Saline Flush] 2.5 ml FLUSH ASDIRECTED PRN Saline Lock Insert [OM.PC] Stat 09/29/19 13:57 CORONAVIRUS COVID-19 RAPID [MOLEC] Stat 09/29/19 14:00 Sodium Chloride 0.9% [Normal Saline] 1,000 ml IV ASDIRECTED
[2019-09-29] MEDS ORDERED: Ondansetron 4 MG/2 ML SDV IVPUSH PRN (15:07)
[2019-09-29] MEDS ORDERED: Acetaminophen 325 MG Tab PO PRN (15:07)
--- NOTE | 2019-09-29 15:22 | PCM.HP.2 ---
H&P History of Present Illness - General Date of Service: 09/29/19 Admit Problem/Dx: Admission Diagnosis/Problem Admission Diagnosis/Problem Acute kidney injury Source of Information: Patient History Limitations: Reports: No Limitations - History of Present Illness Initial Comments - Free Text/Narative: This 68 year old male with pmh of HTN, DM Type 2, chronic back pain, and obesity [place] with concerns of worsening renal function on routine labwork. He reports he has been feeling more run down the last week, but has been eating and drinking ok. He denies abdominal pain or flank pain. No urinary troubles. Reports urine is slightly more dark than usual. He reports history of renal injury in the past, unsure why. Has history of kidney stones, does not feel like that is the issue now. He did report injuring his L wrist a couple weeks ago and was given NSAIDs PO and IM a few times. No currently OTC medications. He denies tobacco use, alcohol use or recreational drug use. In the ED labwork obtained reveals normal CBC, Na 134, K+ 3.5, Bicarb 20.2, BUN 48, Cr 2.9, Bilirubin 1.5 AST 42 COVID negative. BP softer, 100-105/50s, HR 60- 80s. He was given 1 L NS bolus in the ED. Admitted observation for AGUILAR. PCP, [facility] Eloy Hdz [employer] - Related Data Allergies/Adverse Reactions: Allergies Allergy/AdvReac Type Severity Reaction Status Date / Time methocarbamol [From Robaxin] Allergy Agitation Verified 09/29/19 12:42 Home Medications: Home Meds FLUoxetine HCl [Fluoxetine HCl] 60 mg PO WITHBREAKFAST 10/06/18 [History] Isosorbide Mononitrate [Imdur] 30 mg PO DAILY 10/06/18 [History] Lisinopril 5 mg PO QAM 10/06/18 [History] carvediloL [Carvedilol] 25 mg PO BID 10/06/18 [History] Baclofen 10 mg PO TID 05/31/19 [History] Gabapentin [Neurontin] 300 mg PO TID 05/31/19 [History] Insulin Aspart [NovoLOG] 12 unit SUBCUT .QAM AND QPM 05/31/19 [History] Insulin Glargine,Hum.Rec.Anlog [Lantus Solostar] 32 unit SQ .QAM AND QPM 05/31/19 [History] traZODone HCl [Trazodone HCl] 150 mg PO BEDTIME 05/31/19 [History] Cholecalciferol (Vitamin D3) [Vitamin D3] 50 mcg PO DAILY 09/29/19 [History] Cyanocobalamin (Vitamin B-12) [B-12] 1,000 mcg PO QAM 09/29/19 [History] Lidocaine 1 each TOP DAILY 09/29/19 [History] Magnesium Oxide 420 mg PO BID 09/29/19 [History] Meloxicam 7.5 mg PO WITHBREAKFAST 09/29/19 [History] Omeprazole 20 mg PO ACBREAKFAST 09/29/19 [History] Past Medical History HEENT History: Reports: None Cardiovascular History: Reports: High Cholesterol, Hypertension, Other (See Below) Other Cardiovascular History: reports a "chip in my chest", states "no mri for m e" Respiratory History: Reports: None Gastrointestinal History: Reports: GERD Genitourinary History: Reports: Renal Calculus Musculoskeletal History: Reports: Arthritis, Back Pain, Chronic, Other (See Below) Other Musculoskeletal History: lower back pain Neurological History: Reports: None Psychiatric History: Reports: Anxiety, Depression, PTSD Endocrine/Metabolic History: Reports: Diabetes, Type II, Obesity/BMI 30+ Hematologic History: Reports: None Oncologic (Cancer) History: Reports: None Dermatologic History: Reports: None - Infectious Disease History Infectious Disease History: Reports: None - Past Surgical History Head Surgeries/Procedures: Reports: None Cardiovascular Surgical History: Reports: None GI Surgical History: Reports: Appendectomy, Cholecystectomy, Hernia Repair/Other Male Surgical History: Reports: Renal Calculus Endocrine Surgical History: Reports: None Other Musculoskeletal Surgeries/Procedures:: Back surgery with fusions plate and screws Social & Family History - Family History Family Medical History: Noncontributory - Tobacco Use Smoking Status *Q: Never Smoker - Caffeine Use Caffeine Use: Reports: Coffee Other Caffeine Use: 20 oz coffee in morning - Alcohol Use Alcohol Use History: No - Recreational Drug Use Recreational Drug Use: No - Living Situation & Occupation Occupation: Retired H&P Review of Systems - Review of Systems: Review Of Systems: See Below General: Reports: Malaise (generalized), Fatigue HEENT: Reports: No Symptoms Pulmonary: Denies: Shortness of Breath Cardiovascular: Denies: Chest Pain Gastrointestinal: Reports: No Symptoms, Other (no rectal pain or pressure). Denies: Abdominal Pain, Black Stool, Bloody Stool, Nausea, Vomiting Genitourinary: Reports: No Symptoms. Denies: Dysuria, Frequency Musculoskeletal: Reports: Back Pain (chronic) Skin: Reports: Wound Psychiatric: Reports: No Symptoms Neurological: Reports: No Symptoms Hematologic/Lymphatic: Reports: No Symptoms Immunologic: Reports: No Symptoms Exam - Exam Exam: See Below - Vital Signs Vital Signs: Last Vital Signs Temp 97.4 F 09/29/19 15:08 Pulse 72 09/29/19 15:08 Resp 16 09/29/19 15:08 BP 138/68 09/29/19 15:08 Pulse Ox 100 09/29/19 15:08 Weight: 100.698 kg - Exam General: Alert, Oriented, Cooperative HEENT: Conjunctiva Clear, Mucosa Moist & [place] Neck: Supple, Full Range of Motion. No: JVD Lungs: Clear to Auscultation, Normal Respiratory Effort Cardiovascular: Regular Rate, Regular Rhythm GI/Abdominal Exam: Normal Bowel Sounds, Soft, Non-Tender Back Exam: Normal Inspection, Full Range of Motion. No: CVA Tenderness (L), CVA Tenderness (R) Neurological: Cranial Nerves Intact Neuro Extensive - Mental Status: Alert, Oriented x3 Neuro Extensive - Motor, Sensory, Reflexes: CN II-XII Intact, Normal Gait, Normal Reflexes Psychiatric: Alert, Normal Affect, Normal Mood - Patient Data Lab Results Last 24 hrs: Laboratory Results - last 24 hr 09/29/19 09/29/19 09/29/19 Range/Units 13:05 13:05 13:57 WBC 9.43 (4.0-11.0) K/uL RBC 4.94 (4.50-5.90) M/uL Hgb 14.9 (13.0-17.0) g/dL Hct 41.5 (38.0-50.0) % MCV 84.0 (80.0-98.0) fL MCH 30.2 (27.0-32.0) pg MCHC 35.9 (31.0-37.0) g/dL RDW Std Deviation 40.2 (28.0-62.0) fl RDW Coeff of Davi 13 (11.0-15.0) % Plt Count 184 (150-400) K/uL MPV 9.20 (7.40-12.00) fL Neut % (Auto) 54.4 (48.0-80.0) % Lymph % (Auto) 32.4 (16.0-40.0) % [place] % (Auto) 9.8 (0.0-15.0) % Eos % (Auto) 3.2 (0.0-7.0) % Baso % (Auto) 0.2 (0.0-1.5) % Neut # (Auto) 5.1 (1.4-5.7) K/uL Lymph # (Auto) 3.1 H (0.6-2.4) K/uL [place] # (Auto) 0.9 H (0.0-0.8) K/uL Eos # (Auto) 0.3 (0.0-0.7) K/uL Baso # (Auto) 0.0 (0.0-0.1) K/uL Nucleated RBC % 0.0 /100WBC Nucleated RBCs # 0 K/uL Sodium 134 L (136-148) mmol/L Potassium 3.5 (3.5-5.1) mmol/L Chloride 100 (98-107) mmol/L Carbon Dioxide 20.2 L (21.0-32.0) mmol/L BUN 48 H (7.0-18.0) mg/dL Creatinine 2.9 H (0.8-1.3) mg/dL Est Cr Clr Drug Dosing 24.47 mL/min Estimated GFR (MDRD) 21.6 ml/min Glucose 196 H (74-106) mg/dL Calcium 8.9 (8.5-10.1) mg/dL Total Bilirubin 1.5 H (0.2-1.0) mg/dL AST 42 H (15-37) IU/L ALT 48 (14-63) IU/L Alkaline Phosphatase 99 (46-116) U/L Total Protein 7.8 (6.4-8.2) g/dL Albumin 4.1 (3.4-5.0) g/dL Globulin 3.7 (2.6-4.0) g/dL Albumin/Globulin Ratio 1.1 (0.9-1.6) COVID-19 (OLAYINKA) NEGATIVE (NEGATIVE) Result Diagrams: 09/29/19 13:05 09/29/19 13:05 Sepsis Event Note - Evaluation Sepsis Screening Result: No Definite Risk - Focused Exam Vital Signs: Vital Signs Temp Pulse Resp BP Pulse Ox 09/29/19 15:08 97.4 F 72 16 138/68 100 09/29/19 13:45 66 101/59 L 98 09/29/19 13:15 64 16 104/51 L 96 09/29/19 12:42 96.4 F L 83 16 108/58 L 98 - Problem List (1) Acute kidney injury SNOMED Code(s): 36134295, 41711659 ICD Code: N17.9 - ACUTE KIDNEY FAILURE, UNSPECIFIED Status: Acute Current Visit: Yes (2) Generalized weakness SNOMED Code(s): 41819468 ICD Code: R53.1 - WEAKNESS Status: Acute Current Visit: No (3) HTN (hypertension) SNOMED Code(s): 76838833 ICD Code: I10 - ESSENTIAL (PRIMARY) HYPERTENSION Status: Chronic Current Visit: Yes (4) Diabetes SNOMED Code(s): 43126190 ICD Code: E11.9 - TYPE 2 DIABETES MELLITUS WITHOUT COMPLICATIONS Status: Chronic Current Visit: No Qualifiers: Diabetes mellitus type: type 2 Diabetes mellitus termite treater insulin use: with [facility] use Diabetes mellitus complication status: without complication Qualified Code(s): E11.9 - Type 2 diabetes mellitus without complications; Z79.4 - local intermodal truck driver (current) use of insulin Problem List Initiated/Reviewed/Updated: Yes Orders Last 24hrs: Active Orders 24 hr Category Date Time Status Patient Status [ADT] Routine ADT 09/29/19 14:22 Active Bladder Scan [RC] ASDIRECTED Care 09/29/19 15:14 Active Blood Glucose Check, Bedside [RC] TIDAC Care 09/29/19 15:10 Ordered Intake and Output [RC] QSHIFT Care 09/29/19 15:08 Ordered May Shower [RC] ASDIRECTED Care 09/29/19 15:07 Ordered Oxygen Therapy [RC] PRN Care 09/29/19 15:07 Ordered Up With Assistance [RC] ASDIRECTED Care 09/29/19 15:07 Ordered VTE/DVT Education [RC] PER UNIT ROUTINE Care 09/29/19 15:07 Ordered Vital Signs [RC] Q4H Care 08/21/20 15:07 Ordered [employer] Diet [DIET] Diet 09/29/19 Dinner Ordered Retroperitoneal Comp [US] Urgent Exams 09/29/19 14:23 Ordered CBC WITH AUTO DIFF [HEME] AM Lab 09/30/19 05:11 Ordered COMPREHENSIVE METABOLIC PN,CMP [CHEM] AM Lab 09/30/19 05:11 Ordered CREATININE,URINE RAND [URCHEM] Stat Lab 09/29/19 14:22 Ordered SODIUM,URINE RANDOM [URCHEM] Stat Lab 09/29/19 14:22 Ordered UA RFX MAXIMILIAN AND CULT IF INDIC [URIN] Stat Lab 09/29/19 14:22 Ordered Acetaminophen [TylenoL] Med 09/29/19 15:07 Ordered 650 mg PO Q4H PRN Baclofen [Baclofen] Med 09/29/19 22:00 Ordered 10 mg PO TID Cholecalciferol (Vitamin D3) [Vitamin D3] Med 09/30/19 09:00 Ordered 50 mcg PO DAILY Cyanocobalamin (Vitamin B-12) Med 09/30/19 09:00 Ordered 1,000 mcg PO QAM FLUoxetine [PROzac] Med 09/30/19 08:00 Ordered 60 mg PO WITHBREAKFAST Heparin Sodium Med 09/29/19 15:15 Ordered 5,000 units SUBCUT Q12H Insulin Aspart [NovoLOG] Med 09/29/19 17:00 Active See Protocol SUBCUT TIDAC Insulin Glarg,Human.Rec.Analog [LantUS Solostar] Med 09/29/19 21:00 Ordered 32 units SUBCUT BID Omeprazole Med 09/30/19 07:30 Ordered 20 mg PO ACBREAKFAST Ondansetron [Zofran] Med 09/29/19 15:07 Ordered 4 mg IVPUSH Q4H PRN Sodium Chloride 0.9% [Normal Saline] 1,000 ml Med 09/29/19 15:15 Ordered IV Q8H Sodium Chloride 0.9% [Saline Flush] Med 09/29/19 15:07 Ordered 2.5 ml FLUSH ASDIRECTED PRN carvediloL [Coreg] Med 09/29/19 21:00 Ordered 25 mg PO BID traZODone HCl [Trazodone HCl] Med 09/29/19 21:00 Ordered 150 mg PO BEDTIME Saline Lock Insert [OM.PC] Routine Oth 09/29/19 15:07 Ordered Resuscitation Status Routine Resus Stat 09/29/19 15:07 Ordered Medication Orders Acetaminophen (Tylenol) 650 mg PO Q4H PRN PRN Reason: Pain (Mild 1-3)/fever Carvedilol (Coreg) 25 mg PO BID [facility] Cholecalciferol (Vitamin D3) 50 mcg PO DAILY [facility] Fluoxetine HCl (Prozac) 60 mg PO WITHBREAKFAST [facility] Heparin Sodium (Porcine) (Heparin Sodium) 5,000 units SUBCUT Q12H [facility] Sodium Chloride (Normal Saline) 1,000 mls @ 125 mls/hr IV Q8H [facility] Insulin Aspart (Novolog) 0 unit SUBCUT TIDAC [facility]; Protocol Insulin Glargine (Lantus Solostar) 32 units SUBCUT BID [facility] Non-Formulary Medication (Baclofen [Baclofen]) 10 mg PO TID [facility] Non-Formulary Medication (Cyanocobalamin (Vitamin B-12)) 1,000 mcg PO QAM [facility] Non-Formulary Medication (Trazodone Hcl [Trazodone Hcl]) 150 mg PO BEDTIME [facility] Omeprazole (Omeprazole) 20 mg PO ACBREAKFAST [facility] Ondansetron HCl (Zofran) 4 mg IVPUSH Q4H PRN PRN Reason: Nausea Sodium Chloride (Saline Flush) 2.5 ml FLUSH ASDIRECTED PRN PRN Reason: Keep Vein Open Assessment/Plan Comment:: This 68 year old male admitted with AGUILAR 1. AGUILAR - Unknown cause currently, further work up needed, could be related to NSAIDs given a couple weeks ago for wrist injury. - Obtain retroperitoneal US to rule out hydronephrosis or obstruction - Bladder scan to rule out obstructive uropathy - Ua and FENA pending - NS 125 ml/hr - Recheck labwork in am - Hold nephrotoxic medications 2. DM Type 2 - BS TID AC - Novolog with meals - Lantus BID 32 units 3. HTN: - Hold Lisinopril due to AGUILAR - Imdur due to hypotension - Continue Coreg for now 4. Chronic back pain - Continue baclofen - Continue gabapentin, but decrease dose to BID for renal dosing VTE prophylaxis: Heparin Dispo: 2 days
[2019-09-29] MEDS: Sodium Chloride 0.9% 1,000 ML IV SCH (15:25)
[2019-09-29] MEDS: Heparin Sodium 5,000 Units/ML Vial SUBCUT SCH (15:31)
[2019-09-29] MEDS: Insulin Aspart 100 Units/ML 3 ML Pen SUBCUT SCH (17:50)
[2019-09-29] MEDS: Baclofen 10 MG Tab PO SCH (21:32)
[2019-09-29] MEDS: traZODone 50 MG Tab PO SCH (21:33)
[2019-09-29] MEDS: Carvedilol 25 MG Tab PO SCH (21:33)
[2019-09-29] MEDS: Insulin Glargine,Human Rec. Analog 100 Units/ML 3 ML Pen SUBCUT SCH (21:38)
[2019-09-30] MEDS: Sodium Chloride 0.9% 1,000 ML IV SCH ×3 (00:32→17:22)
[2019-09-30] MEDS: Heparin Sodium 5,000 Units/ML Vial SUBCUT SCH ×3 (04:44→16:30)
[2019-09-30] MEDS: Baclofen 10 MG Tab PO SCH ×3 (06:39→21:50)
[2019-09-30] MEDS: Omeprazole 20 MG Cap.CR PO SCH (06:39)
[2019-09-30 06:46] LABS: CARBON DIOXIDE,CO2 20.6 mmol/L (21.0-32.0); POTASSIUM,K 3.4 mmol/L (3.5-5.1)
[2019-09-30] MEDS: Insulin Aspart 100 Units/ML 3 ML Pen SUBCUT SCH ×3 (07:39→17:26)
[2019-09-30] MEDS: Cholecalciferol (Vitamin D3) 25 MCG Tab PO SCH (08:22)
[2019-09-30] MEDS: FLUoxetine 20 MG Cap PO SCH (08:24)
[2019-09-30] MEDS: Carvedilol 25 MG Tab PO SCH ×2 (08:24→21:50)
[2019-09-30] MEDS: Insulin Glargine,Human Rec. Analog 100 Units/ML 3 ML Pen SUBCUT SCH ×2 (08:40→21:51)
--- NOTE | 2019-09-30 08:59 | PCM.PN ---
- General Info Date of Service: 09/30/19 Subjective Update: No complaints at bedside this AM. Reports urinating frequently and tolerating oral diet. - Patient Data Vitals - Most Recent: Last Vital Signs Temp 97.2 C H 09/30/19 07:40 Pulse 69 09/30/19 08:24 Resp 15 09/30/19 07:40 BP 127/61 09/30/19 08:24 Pulse Ox 99 09/30/19 07:40 Weight - Most Recent: 100.698 kg I&O - Last 24 Hours: Intake & Output 09/29/19 09/30/19 09/30/19 22:59 06:59 14:59 Intake Total 1670 Output Total 100 700 Balance -100 970 Lab Results Last 24 Hours: Laboratory Results - last 24 hr 09/29/19 09/29/19 09/29/19 Range/Units 13:05 13:05 13:57 WBC 9.43 (4.0-11.0) K/uL RBC 4.94 (4.50-5.90) M/uL Hgb 14.9 (13.0-17.0) g/dL Hct 41.5 (38.0-50.0) % MCV 84.0 (80.0-98.0) fL MCH 30.2 (27.0-32.0) pg MCHC 35.9 (31.0-37.0) g/dL RDW Std Deviation 40.2 (28.0-62.0) fl RDW Coeff of Davi 13 (11.0-15.0) % Plt Count 184 (150-400) K/uL MPV 9.20 (7.40-12.00) fL Neut % (Auto) 54.4 (48.0-80.0) % Lymph % (Auto) 32.4 (16.0-40.0) % [place] % (Auto) 9.8 (0.0-15.0) % Eos % (Auto) 3.2 (0.0-7.0) % Baso % (Auto) 0.2 (0.0-1.5) % Neut # (Auto) 5.1 (1.4-5.7) K/uL Lymph # (Auto) 3.1 H (0.6-2.4) K/uL [place] # (Auto) 0.9 H (0.0-0.8) K/uL Eos # (Auto) 0.3 (0.0-0.7) K/uL Baso # (Auto) 0.0 (0.0-0.1) K/uL Nucleated RBC % 0.0 /100WBC Nucleated RBCs # 0 K/uL Sodium 134 L (136-148) mmol/L Potassium 3.5 (3.5-5.1) mmol/L Chloride 100 (98-107) mmol/L Carbon Dioxide 20.2 L (21.0-32.0) mmol/L BUN 48 H (7.0-18.0) mg/dL Creatinine 2.9 H (0.8-1.3) mg/dL Est Cr Clr Drug Dosing 24.47 mL/min Estimated GFR (MDRD) 21.6 ml/min Glucose 196 H (74-106) mg/dL POC Glucose (60-110) mg/dL Calcium 8.9 (8.5-10.1) mg/dL Total Bilirubin 1.5 H (0.2-1.0) mg/dL AST 42 H (15-37) IU/L ALT 48 (14-63) IU/L Alkaline Phosphatase 99 (46-116) U/L Total Protein 7.8 (6.4-8.2) g/dL Albumin 4.1 (3.4-5.0) g/dL Globulin 3.7 (2.6-4.0) g/dL Albumin/Globulin Ratio 1.1 (0.9-1.6) Urine Color Urine Appearance Urine pH (5.0-8.0) Ur Specific [place] (1.001-1.035) Urine Protein (NEGATIVE) mg/dL Urine Glucose (UA) (NEGATIVE) mg/dL Urine Ketones (NEGATIVE) mg/dL Urine Occult Blood (NEGATIVE) Urine Nitrite (NEGATIVE) Urine Bilirubin (NEGATIVE) Urine Urobilinogen (<2.0) EU/dL Ur Leukocyte Esterase (NEGATIVE) Ur Random Creatinine mg/dL Ur Random Sodium (40.0-220.0) mmol/L COVID-19 (OLAYINKA) NEGATIVE (NEGATIVE) 09/29/19 09/29/19 09/29/19 Range/Units 15:34 15:34 17:50 WBC (4.0-11.0) K/uL RBC (4.50-5.90) M/uL Hgb (13.0-17.0) g/dL Hct (38.0-50.0) % MCV (80.0-98.0) fL MCH (27.0-32.0) pg MCHC (31.0-37.0) g/dL RDW Std Deviation (28.0-62.0) fl RDW Coeff of Davi (11.0-15.0) % Plt Count (150-400) K/uL MPV (7.40-12.00) fL Neut % (Auto) (48.0-80.0) % Lymph % (Auto) (16.0-40.0) % [place] % (Auto) (0.0-15.0) % Eos % (Auto) (0.0-7.0) % Baso % (Auto) (0.0-1.5) % Neut # (Auto) (1.4-5.7) K/uL Lymph # (Auto) (0.6-2.4) K/uL [place] # (Auto) (0.0-0.8) K/uL Eos # (Auto) (0.0-0.7) K/uL Baso # (Auto) (0.0-0.1) K/uL Nucleated RBC % /100WBC Nucleated RBCs # K/uL Sodium (136-148) mmol/L Potassium (3.5-5.1) mmol/L Chloride (98-107) mmol/L Carbon Dioxide (21.0-32.0) mmol/L BUN (7.0-18.0) mg/dL Creatinine (0.8-1.3) mg/dL Est Cr Clr Drug Dosing mL/min Estimated GFR (MDRD) ml/min Glucose (74-106) mg/dL POC Glucose 211 H (60-110) mg/dL Calcium (8.5-10.1) mg/dL Total Bilirubin (0.2-1.0) mg/dL AST (15-37) IU/L ALT (14-63) IU/L Alkaline Phosphatase (46-116) U/L Total Protein (6.4-8.2) g/dL Albumin (3.4-5.0) g/dL Globulin (2.6-4.0) g/dL Albumin/Globulin Ratio (0.9-1.6) Urine Color YELLOW Urine Appearance CLEAR Urine pH 6.0 (5.0-8.0) Ur Specific [place] >= 1.030 (1.001-1.035) Urine Protein NEGATIVE (NEGATIVE) mg/dL Urine Glucose (UA) NEGATIVE (NEGATIVE) mg/dL Urine Ketones NEGATIVE (NEGATIVE) mg/dL Urine Occult Blood NEGATIVE (NEGATIVE) Urine Nitrite NEGATIVE (NEGATIVE) Urine Bilirubin NEGATIVE (NEGATIVE) Urine Urobilinogen 0.2 (<2.0) EU/dL Ur Leukocyte Esterase NEGATIVE (NEGATIVE) Ur Random Creatinine 378.8 mg/dL Ur Random Sodium 35.0 L (40.0-220.0) mmol/L COVID-19 (OLAYINKA) (NEGATIVE) 09/29/19 09/30/19 09/30/19 Range/Units 21:38 05:38 05:38 WBC 5.58 (4.0-11.0) K/uL RBC 4.33 L (4.50-5.90) M/uL Hgb 13.0 (13.0-17.0) g/dL Hct 36.8 L (38.0-50.0) % MCV 85.0 (80.0-98.0) fL MCH 30.0 (27.0-32.0) pg MCHC 35.3 (31.0-37.0) g/dL RDW Std Deviation 41.3 (28.0-62.0) fl RDW Coeff of Davi 13 (11.0-15.0) % Plt Count 127 L (150-400) K/uL MPV 8.70 (7.40-12.00) fL Neut % (Auto) 46.2 L (48.0-80.0) % Lymph % (Auto) 40.0 (16.0-40.0) % [place] % (Auto) 10.0 (0.0-15.0) % Eos % (Auto) 3.4 (0.0-7.0) % Baso % (Auto) 0.4 (0.0-1.5) % Neut # (Auto) 2.6 (1.4-5.7) K/uL Lymph # (Auto) 2.2 (0.6-2.4) K/uL [place] # (Auto) 0.6 (0.0-0.8) K/uL Eos # (Auto) 0.2 (0.0-0.7) K/uL Baso # (Auto) 0.0 (0.0-0.1) K/uL Nucleated RBC % 0.0 /100WBC Nucleated RBCs # 0 K/uL Sodium 141 (136-148) mmol/L Potassium 3.4 L (3.5-5.1) mmol/L Chloride 110 H (98-107) mmol/L Carbon Dioxide 20.6 L (21.0-32.0) mmol/L BUN 35 H (7.0-18.0) mg/dL Creatinine 1.6 H (0.8-1.3) mg/dL Est Cr Clr Drug Dosing 44.36 mL/min Estimated GFR (MDRD) 42.9 ml/min Glucose 122 H (74-106) mg/dL POC Glucose 186 H (60-110) mg/dL Calcium 8.1 L (8.5-10.1) mg/dL Total Bilirubin 1.0 (0.2-1.0) mg/dL AST 28 (15-37) IU/L ALT 38 (14-63) IU/L Alkaline Phosphatase 78 (46-116) U/L Total Protein 6.3 L (6.4-8.2) g/dL Albumin 3.2 L (3.4-5.0) g/dL Globulin 3.1 (2.6-4.0) g/dL Albumin/Globulin Ratio 1.0 (0.9-1.6) Urine Color Urine Appearance Urine pH (5.0-8.0) Ur Specific [place] (1.001-1.035) Urine Protein (NEGATIVE) mg/dL Urine Glucose (UA) (NEGATIVE) mg/dL Urine Ketones (NEGATIVE) mg/dL Urine Occult Blood (NEGATIVE) Urine Nitrite (NEGATIVE) Urine Bilirubin (NEGATIVE) Urine Urobilinogen (<2.0) EU/dL Ur Leukocyte Esterase (NEGATIVE) Ur Random Creatinine mg/dL Ur Random Sodium (40.0-220.0) mmol/L COVID-19 (OLAYINKA) (NEGATIVE) 09/30/19 Range/Units 07:06 WBC (4.0-11.0) K/uL RBC (4.50-5.90) M/uL Hgb (13.0-17.0) g/dL Hct (38.0-50.0) % MCV (80.0-98.0) fL MCH (27.0-32.0) pg MCHC (31.0-37.0) g/dL RDW Std Deviation (28.0-62.0) fl RDW Coeff of Davi (11.0-15.0) % Plt Count (150-400) K/uL MPV (7.40-12.00) fL Neut % (Auto) (48.0-80.0) % Lymph % (Auto) (16.0-40.0) % [place] % (Auto) (0.0-15.0) % Eos % (Auto) (0.0-7.0) % Baso % (Auto) (0.0-1.5) % Neut # (Auto) (1.4-5.7) K/uL Lymph # (Auto) (0.6-2.4) K/uL [place] # (Auto) (0.0-0.8) K/uL Eos # (Auto) (0.0-0.7) K/uL Baso # (Auto) (0.0-0.1) K/uL Nucleated RBC % /100WBC Nucleated RBCs # K/uL Sodium (136-148) mmol/L Potassium (3.5-5.1) mmol/L Chloride (98-107) mmol/L Carbon Dioxide (21.0-32.0) mmol/L BUN (7.0-18.0) mg/dL Creatinine (0.8-1.3) mg/dL Est Cr Clr Drug Dosing mL/min Estimated GFR (MDRD) ml/min Glucose (74-106) mg/dL POC Glucose 107 (60-110) mg/dL Calcium (8.5-10.1) mg/dL Total Bilirubin (0.2-1.0) mg/dL AST (15-37) IU/L ALT (14-63) IU/L Alkaline Phosphatase (46-116) U/L Total Protein (6.4-8.2) g/dL Albumin (3.4-5.0) g/dL Globulin (2.6-4.0) g/dL Albumin/Globulin Ratio (0.9-1.6) Urine Color Urine Appearance Urine pH (5.0-8.0) Ur Specific [place] (1.001-1.035) Urine Protein (NEGATIVE) mg/dL Urine Glucose (UA) (NEGATIVE) mg/dL Urine Ketones (NEGATIVE) mg/dL Urine Occult Blood (NEGATIVE) Urine Nitrite (NEGATIVE) Urine Bilirubin (NEGATIVE) Urine Urobilinogen (<2.0) EU/dL Ur Leukocyte Esterase (NEGATIVE) Ur Random Creatinine mg/dL Ur Random Sodium (40.0-220.0) mmol/L COVID-19 (OLAYINKA) (NEGATIVE) Sumit Results Last 24 Hours: Microbiology 09/29/19 17:45 C. difficile Antigen & Toxins A,B - Final Stool / Feces Med Orders - Current: Current Medications Acetaminophen (Tylenol) 650 mg PO Q4H PRN PRN Reason: Pain (Mild 1-3)/fever Baclofen (Lioresal) 10 mg PO TID [facility] Last Admin: 09/30/19 06:39 Dose: 10 mg Documented by: Carvedilol (Coreg) 25 mg PO BID [facility] Last Admin: 09/30/19 08:24 Dose: 25 mg Documented by: Cholecalciferol (Vitamin D3) 50 mcg PO DAILY [facility] Last Admin: 09/30/19 08:22 Dose: 50 mcg Documented by: Fluoxetine HCl (Prozac) 60 mg PO WITHBREAKFAST [facility] Last Admin: 09/30/19 08:24 Dose: 60 mg Documented by: Heparin Sodium (Porcine) (Heparin Sodium) 5,000 units SUBCUT Q12H [facility] Last Admin: 09/30/19 04:44 Dose: 5,000 units Documented by: Sodium Chloride (Normal Saline) 1,000 mls @ 125 mls/hr IV Q8H [facility] Last Admin: 09/30/19 08:30 Dose: 125 mls/hr Documented by: Insulin Aspart (Novolog) 0 unit SUBCUT TIDAC [facility]; Protocol Last Admin: 09/30/19 07:39 Dose: Not Given Documented by: Insulin Glargine (Lantus Solostar) 32 units SUBCUT BID [facility] Last Admin: 09/30/19 08:40 Dose: 32 units Documented by: Omeprazole (Omeprazole) 20 mg PO ACBREAKFAST [facility] Last Admin: 09/30/19 06:39 Dose: 20 mg Documented by: Ondansetron HCl (Zofran) 4 mg IVPUSH Q4H PRN PRN Reason: Nausea Cyanocobalamin ( Vitamin B-12) 1,000 Mcg 1 each PO QAM [facility] Potassium Chloride (Klor-Con M20) 40 meq PO ONETIME ONE Stop: 09/30/19 09:01 Last Admin: 09/30/19 08:23 Dose: 40 meq Documented by: Sodium Chloride (Saline Flush) 2.5 ml FLUSH ASDIRECTED PRN PRN Reason: Keep Vein Open Trazodone HCl (Trazodone) 150 mg PO BEDTIME [facility] Last Admin: 09/29/19 21:33 Dose: 150 mg Documented by: Discontinued Medications Sodium Chloride (Normal Saline) 1,000 mls @ 999 mls/hr IV .Bolus ONE Stop: 09/29/19 13:44 Last Admin: 09/29/19 13:09 Dose: 999 mls/hr Documented by: Sodium Chloride (Normal Saline) 1,000 mls @ 125 mls/hr IV ASDIRECTED [facility] Last Admin: 09/29/19 14:58 Dose: 125 mls/hr Documented by: Sodium Chloride (Saline Flush) 10 ml FLUSH ASDIRECTED PRN PRN Reason: Keep Vein Open Last Admin: 09/29/19 14:58 Dose: 10 ml Documented by: Sodium Chloride (Saline Flush) 2.5 ml FLUSH ASDIRECTED PRN PRN Reason: Keep Vein Open Last Admin: 09/29/19 14:58 Dose: 2.5 ml Documented by: - Exam General: Alert, Oriented, Cooperative, No Acute Distress Lungs: Clear to Auscultation, Normal Respiratory Effort Cardiovascular: Regular Rate, Regular Rhythm GI/Abdominal Exam: Normal Bowel Sounds, Soft, Non-Tender, No Distention Extremities: Normal Inspection, No Pedal Edema Sepsis Event Note - Evaluation Sepsis Screening Result: No Definite Risk - Focused Exam Vital Signs: Vital Signs Temp Pulse Pulse Resp BP BP Pulse Ox 09/30/19 08:24 69 127/61 09/30/19 07:40 97.2 C H 69 15 127/61 99 09/30/19 04:43 36.3 C 64 14 117/55 L 97 09/30/19 00:33 36.3 C 70 14 124/63 97 09/29/19 21:33 74 145/67 H - Problem List Review Problem List Initiated/Reviewed/Updated: Yes - My Orders Last 24 Hours: My Active Orders 09/30/19 09:00 Potassium Chloride [Klor-Con M20] 40 meq PO ONETIME ONE - Plan Plan:: Assessment and Plan: 1. AGUILAR, improving. - Will continue IV NS 125 cc/hr. Retroperitoneal U/S pending. - Etiology undetermined at this time, however, could be secondary to recent history of PO/IM NSAIDs for wrist injury vs recent diarrhea causing dehydration. - Stool negative for c. diff. Remaining stool cultures pending. 2. DM Type 2: - Novolog SSI, lantus 32 units BID and ADA diet. 3. HTN: - Continue to hold Lisinopril due to AGUILAR and imdur as patient's blood pressure are normotensive. 4. Chronic back pain - Continue baclofen and gabapentin. Gabapentin dose decreased to BID for renal dosing 5. DVT prophylaxis: Heparin
[2019-09-30] MEDS ORDERED: Potassium Chloride 20 MEQ Tab.ER PO ONE (09:00)
[2019-09-30] MEDS ORDERED: Cyanocobalamin (Vitamin B-12) 1,000 MCG PO SCH (09:00)
--- NOTE | 2019-09-30 11:37 | US ---
Renal ultrasound: Multiple real-time images of the kidneys were obtained. Comparison: Prior renal ultrasound study of 10/18/18. No hydronephrosis is seen. Equivocal hypoechoic area within the lower and anterior right kidney is seen measuring about 2.2 cm. This is not appreciated with certainty on the prior study. This may be artifact or represent a small cyst. No additional abnormalities appreciated within the kidneys. Small post void residual is seen Measurements: Right kidney: Length 12.4 cm (voice recognition error is noted in previous report giving the right kidney length of 19.3 cm which is incorrect and measured 9.3 cm on prior study, note normal length of the right kidney is seen on current exam. Differences most likely due to more accurate measuring on current study) Left kidney: Length 12.3 cm. Impression: 1. Equivocal cyst within the right kidney. 2. Small post void residual. 3. Renal ultrasound is otherwise unremarkable. Diagnostic code #2 This report was dictated in MDT
[2019-09-30] MEDS: traZODone 50 MG Tab PO SCH (21:50)
[2019-10-01] MEDS: Sodium Chloride 0.9% 1,000 ML IV SCH (01:19)
[2019-10-01] MEDS: Heparin Sodium 5,000 Units/ML Vial SUBCUT SCH (04:52)
[2019-10-01 06:48] LABS: CARBON DIOXIDE,CO2 21.4 mmol/L (21.0-32.0); POTASSIUM,K 3.8 mmol/L (3.5-5.1)
[2019-10-01] MEDS: Omeprazole 20 MG Cap.CR PO SCH (07:31)
[2019-10-01] MEDS: Baclofen 10 MG Tab PO SCH (07:31)
[2019-10-01] MEDS: Insulin Aspart 100 Units/ML 3 ML Pen SUBCUT SCH (07:33)
[2019-10-01] MEDS: Cholecalciferol (Vitamin D3) 25 MCG Tab PO SCH (08:35)
[2019-10-01] MEDS: FLUoxetine 20 MG Cap PO SCH (08:35)
[2019-10-01] MEDS: Carvedilol 25 MG Tab PO SCH (08:37)
--- NOTE | 2019-10-01 09:47 | PCM.DCSUM1 ---
Discharge Summary - Discharge Data Discharge Date: 10/01/19 Discharge Disposition: Home, Self-Care 01 Condition: Good - Referral to Home Health Primary Care Physician: Eloy Hdz NP - Patient Summary/Data Hospital Course: This 68 year old male with pmh of HTN, DM Type 2, chronic back pain, and obesity who was admitted for acute kidney injury. He presented to the ED from the [place] with concerns of worsening renal function on routine labwork. His creatinine was up from 2.9 from 1.2 several weeks ago. He had been taking NSAIDS last month for a wrist injury but had stopped taking NSAIDS several weeks ago. It has been hot outside so he may have become dehydrated. Retroperitoneal ultrasound showed no renal obstruction. He was given IV fluids and his creatine returned to 1.2 after two days. He was discharged home to follow up with the [place] clinic. - Patient Instructions Diet: Diabetic Diet - Discharge Plan *PRESCRIPTION DRUG MONITORING PROGRAM REVIEWED*: Not Applicable *COPY OF PRESCRIPTION DRUG MONITORING REPORT IN PATIENT LILIA: Not Applicable Home Medications: Home Meds FLUoxetine HCl [Fluoxetine HCl] 60 mg PO WITHBREAKFAST 10/06/18 [History] Isosorbide Mononitrate [Imdur] 30 mg PO DAILY 10/06/18 [History] Lisinopril 5 mg PO QAM 10/06/18 [History] carvediloL [Carvedilol] 25 mg PO BID 10/06/18 [History] Baclofen 10 mg PO TID 05/31/19 [History] Gabapentin [Neurontin] 300 mg PO TID 05/31/19 [History] Insulin Aspart [NovoLOG] 12 unit SUBCUT .QAM AND QPM 05/31/19 [History] Insulin Glargine,Hum.Rec.Anlog [Lantus Solostar] 32 unit SQ .QAM AND QPM 05/31/19 [History] traZODone HCl [Trazodone HCl] 150 mg PO BEDTIME 05/31/19 [History] Cholecalciferol (Vitamin D3) [Vitamin D3] 50 mcg PO DAILY 09/29/19 [History] Cyanocobalamin (Vitamin B-12) [B-12] 1,000 mcg PO QAM 09/29/19 [History] Lidocaine 1 each TOP DAILY 09/29/19 [History] Magnesium Oxide 420 mg PO BID 08/21/20 [History] Omeprazole 20 mg PO ACBREAKFAST 09/29/19 [History] Patient Handouts: Dehydration, Adult, [id number], Chronic Kidney Disease, A dult, [id number] Referrals: Eloy Hdz NP [Primary Care Provider] - - Discharge Summary/Plan Comment DC Time >30 min.: No - Patient Data Vitals - Most Recent: Last Vital Signs Temp 36.3 C 10/01/19 05:11 Pulse 65 10/01/19 08:37 Resp 16 10/01/19 05:11 BP 165/71 H 10/01/19 08:37 Pulse Ox 97 10/01/19 05:11 Weight - Most Recent: 100.698 kg I&O - Last 24 hours: Intake & Output 09/30/19 10/01/19 10/01/19 22:59 06:59 14:59 Intake Total 2580 1779 Output Total 750 Balance 2580 1029 Lab Results - Last 24 hrs: Laboratory Results - last 24 hr 09/30/19 09/30/19 09/30/19 Range/Units 12:28 17:12 21:56 WBC (4.0-11.0) K/uL RBC (4.50-5.90) M/uL Hgb (13.0-17.0) g/dL Hct (38.0-50.0) % MCV (80.0-98.0) fL MCH (27.0-32.0) pg MCHC (31.0-37.0) g/dL RDW Std Deviation (28.0-62.0) fl RDW Coeff of Davi (11.0-15.0) % Plt Count (150-400) K/uL MPV (7.40-12.00) fL Neut % (Auto) (48.0-80.0) % Lymph % (Auto) (16.0-40.0) % [place] % (Auto) (0.0-15.0) % Eos % (Auto) (0.0-7.0) % Baso % (Auto) (0.0-1.5) % Neut # (Auto) (1.4-5.7) K/uL Lymph # (Auto) (0.6-2.4) K/uL [place] # (Auto) (0.0-0.8) K/uL Eos # (Auto) (0.0-0.7) K/uL Baso # (Auto) (0.0-0.1) K/uL Nucleated RBC % /100WBC Nucleated RBCs # K/uL Sodium (136-148) mmol/L Potassium (3.5-5.1) mmol/L Chloride (98-107) mmol/L Carbon Dioxide (21.0-32.0) mmol/L BUN (7.0-18.0) mg/dL Creatinine (0.8-1.3) mg/dL Est Cr Clr Drug Dosing mL/min Estimated GFR (MDRD) ml/min Glucose (74-106) mg/dL POC Glucose 159 H 192 H 198 H (60-110) mg/dL Calcium (8.5-10.1) mg/dL Total Bilirubin (0.2-1.0) mg/dL AST (15-37) IU/L ALT (14-63) IU/L Alkaline Phosphatase (46-116) U/L Total Protein (6.4-8.2) g/dL Albumin (3.4-5.0) g/dL Globulin (2.6-4.0) g/dL Albumin/Globulin Ratio (0.9-1.6) 10/01/19 10/01/19 10/01/19 Range/Units 05:45 05:45 07:32 WBC 5.67 (4.0-11.0) K/uL RBC 4.39 L (4.50-5.90) M/uL Hgb 12.8 L (13.0-17.0) g/dL Hct 37.8 L (38.0-50.0) % MCV 86.1 (80.0-98.0) fL MCH 29.2 (27.0-32.0) pg MCHC 33.9 (31.0-37.0) g/dL RDW Std Deviation 42.1 (28.0-62.0) fl RDW Coeff of Davi 13 (11.0-15.0) % Plt Count 139 L (150-400) K/uL MPV 9.20 (7.40-12.00) fL Neut % (Auto) 46.8 L (48.0-80.0) % Lymph % (Auto) 40.0 (16.0-40.0) % [place] % (Auto) 9.5 (0.0-15.0) % Eos % (Auto) 3.5 (0.0-7.0) % Baso % (Auto) 0.2 (0.0-1.5) % Neut # (Auto) 2.7 (1.4-5.7) K/uL Lymph # (Auto) 2.3 (0.6-2.4) K/uL [place] # (Auto) 0.5 (0.0-0.8) K/uL Eos # (Auto) 0.2 (0.0-0.7) K/uL Baso # (Auto) 0.0 (0.0-0.1) K/uL Nucleated RBC % 0.0 /100WBC Nucleated RBCs # 0 K/uL Sodium 142 (136-148) mmol/L Potassium 3.8 (3.5-5.1) mmol/L Chloride 111 H (98-107) mmol/L Carbon Dioxide 21.4 (21.0-32.0) mmol/L BUN 15 (7.0-18.0) mg/dL Creatinine 1.2 (0.8-1.3) mg/dL Est Cr Clr Drug Dosing 59.14 mL/min Estimated GFR (MDRD) 59.9 ml/min Glucose 155 H (74-106) mg/dL POC Glucose 122 H (60-110) mg/dL Calcium 8.2 L (8.5-10.1) mg/dL Total Bilirubin 0.4 (0.2-1.0) mg/dL AST 22 (15-37) IU/L ALT 32 (14-63) IU/L Alkaline Phosphatase 82 (46-116) U/L Total Protein 6.1 L (6.4-8.2) g/dL Albumin 3.0 L (3.4-5.0) g/dL Globulin 3.1 (2.6-4.0) g/dL Albumin/Globulin Ratio 1.0 (0.9-1.6) Med Orders - Current: Current Medications Acetaminophen (Tylenol) 650 mg PO Q4H PRN PRN Reason: Pain (Mild 1-3)/fever Baclofen (Lioresal) 10 mg PO TID [facility] Last Admin: 10/01/19 07:31 Dose: 10 mg Documented by: Carvedilol (Coreg) 25 mg PO BID [facility] Last Admin: 10/01/19 08:37 Dose: 25 mg Documented by: Cholecalciferol (Vitamin D3) 50 mcg PO DAILY [facility] Last Admin: 10/01/19 08:35 Dose: 50 mcg Documented by: Fluoxetine HCl (Prozac) 60 mg PO WITHBREAKFAST [facility] Last Admin: 10/01/19 08:35 Dose: 60 mg Documented by: Heparin Sodium (Porcine) (Heparin Sodium) 5,000 units SUBCUT Q12H [facility] Last Admin: 10/01/19 04:52 Dose: 5,000 units Documented by: Sodium Chloride (Normal Saline) 1,000 mls @ 125 mls/hr IV Q8H [facility] Last Admin: 10/01/19 01:19 Dose: 125 mls/hr Documented by: Insulin Aspart (Novolog) 0 unit SUBCUT TIDAC [facility]; Protocol Last Admin: 10/01/19 07:33 Dose: Not Given Documented by: Insulin Glargine (Lantus Solostar) 32 units SUBCUT BID [facility] Last Admin: 09/30/19 21:51 Dose: 32 units Documented by: Omeprazole (Omeprazole) 20 mg PO ACBREAKFAST [facility] Last Admin: 10/01/19 07:31 Dose: 20 mg Documented by: Ondansetron HCl (Zofran) 4 mg IVPUSH Q4H PRN PRN Reason: Nausea Cyanocobalamin ( Vitamin B-12) 1,000 Mcg 1 each PO QAM [facility] Last Admin: 09/30/19 08:40 Dose: 1 each Documented by: Sodium Chloride (Saline Flush) 2.5 ml FLUSH ASDIRECTED PRN PRN Reason: Keep Vein Open Trazodone HCl (Trazodone) 150 mg PO BEDTIME [facility] Last Admin: 09/30/19 21:50 Dose: 150 mg Documented by: Discontinued Medications Sodium Chloride (Normal Saline) 1,000 mls @ 999 mls/hr IV .Bolus ONE Stop: 09/29/19 13:44 Last Admin: 09/29/19 13:09 Dose: 999 mls/hr Documented by: Sodium Chloride (Normal Saline) 1,000 mls @ 125 mls/hr IV ASDIRECTED [facility] Last Admin: 09/29/19 14:58 Dose: 125 mls/hr Documented by: Potassium Chloride (Klor-Con M20) 40 meq PO ONETIME ONE Stop: 09/30/19 09:01 Last Admin: 09/30/19 08:23 Dose: 40 meq Documented by: Sodium Chloride (Saline Flush) 10 ml FLUSH ASDIRECTED PRN PRN Reason: Keep Vein Open Last Admin: 09/29/19 14:58 Dose: 10 ml Documented by: Sodium Chloride (Saline Flush) 2.5 ml FLUSH ASDIRECTED PRN PRN Reason: Keep Vein Open Last Admin: 09/29/19 14:58 Dose: 2.5 ml Documented by:
== END 2019-10-01 10:30 | disposition home or self-care (01) ==
LOC: MW.ED 12:26 → MW.MS 14:22
PROVIDERS: ADMIT Internal Medicine; ATTEND Internal Medicine
DX: N17.9 Acute kidney failure, unspecified (principal); I10 Essential (primary) hypertension; E11.9 Type 2 diabetes mellitus without complications; G89.29 Other chronic pain; M54.9 Dorsalgia, unspecified; E66.9 Obesity, unspecified; E78.00 Pure hypercholesterolemia, unspecified; F41.9 Anxiety disorder, unspecified; F32.9 Major depressive disorder, single episode, unspecified; Z20.828 Contact with and (suspected) exposure to other viral communicable diseases; Z79.899 Other long term (current) drug therapy; Z88.8 Allergy status to other drugs, medicaments and biological substances; Z79.4 Long term (current) use of insulin; Z68.31 Body mass index [BMI] 31.0-31.9, adult
CPT/HCPCS: 36415; 51798; 76770; 80053; 81003; 82570; 82962; 84300; 85025; 87324; 87635; 96360; 96361; 96372; 99284; A9270; G0378; J1644; J1815; J7030; 99283; U0002